=== PATIENT | female | born 2000 | race Caucasian/White ===

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

== ENCOUNTER 2019-05-30 18:39 | Emergency (ER) | payer MEDICAID ==
--- NOTE | 2019-05-30 19:12 | EDM.PDOC ---
ED HPI GENERAL MEDICAL PROBLEM - General Chief Complaint: Laceration Stated Complaint: CUT FINGER Time Seen by Provider: 05/30/19 19:10 Source of Information: Reports: Patient History Limitations: Reports: No Limitations - History of Present Illness INITIAL COMMENTS - FREE TEXT/NARRATIVE: 19 yo female , presented with injury to left finger nail , while she was shaving. No other injuries. They small superficial. No bleeding. Nailbed intact. - Related Data Allergies Allergy/AdvReac Type Severity Reaction Status Date / Time No Known Allergies Allergy Verified 05/30/19 19:09 Home Meds: Home Meds Eszopiclone [Lunesta] 2 mg PO DAILY 10/21/18 [History] Past Medical History HEENT History: Reports: Impaired Vision Gastrointestinal History: Reports: Chronic Constipation, GERD Neurological History: Reports: Migraines Psychiatric History: Reports: Anxiety, Depression, Panic Attack Hematologic History: Reports: None Dermatologic History: Reports: None - Infectious Disease History Infectious Disease History: Reports: Chicken Pox - Past Surgical History Head Surgeries/Procedures: Reports: None HEENT Surgical History: Reports: Adenoidectomy, Oral Surgery, Tonsillectomy, Other (See Below) GI Surgical History: Reports: Cholecystectomy Dermatological Surgical History: Reports: None Social & Family History - Family History Family Medical History: Noncontributory - Caffeine Use Caffeine Use: Reports: Coffee, Soda Caffeine Use Comment: 4 per day ED ROS GENERAL - Review of Systems Review Of Systems: ROS reveals no pertinent complaints other than HPI. ED EXAM, SKIN/RASH Exam: See Below Exam Limited By: No Limitations General Appearance: Alert, WD/WN, No Apparent Distress Ears: Normal External Exam, Normal Canal, Hearing Grossly Normal, Normal TMs Nose: Normal Inspection, Normal Mucosa, No Blood Throat/Mouth: Normal Inspection, Normal Lips, Normal Teeth, Normal Gums, Normal Oropharynx, Normal Voice, No Airway Compromise Head: Atraumatic, Normocephalic Neck: Normal Inspection, Supple, Non-Tender, Full Range of Motion Respiratory/Chest: No Respiratory Distress, Lungs Clear, Normal Breath Sounds, No Accessory Muscle Use, Chest Non-Tender Cardiovascular: Normal Peripheral Pulses, Regular Rate, Rhythm, No Edema, No Gallop, No JVD, No Murmur, No Rub GI/Abdominal: Normal Bowel Sounds, Soft, Non-Tender, No Organomegaly, No Distention, No Abnormal Bruit, No Mass Rectal (Female) Exam: Normal Exam, Normal Rectal Tone Back Exam: Normal Inspection, Full Range of Motion, NT Extremities: Normal Inspection, Normal Range of Motion, Non-Tender, No Pedal Edema, Normal Capillary Refill, Other (Superficial abrasion also left second finger nail. No bleeding. No foreign body. Nailbed intact.) Neurological: Alert, Oriented, CN II-XII Intact, Normal Cognition, Normal Gait, Normal Reflexes, No Motor/Sensory Deficits Psychiatric: Normal Affect, Normal Mood Lymphatic: No Adenopathy Departure - Departure Time of Disposition: 19:13 Disposition: Home, Self-Care 01 Condition: Good Clinical Impression: Laceration of finger - Discharge Information Instructions: Laceration Care, Adult Referrals: Ana Cohen CNM [Primary Care Provider] - Forms: ED Department Discharge Additional Instructions: Keep it dry and clean, daily bacitracin, close follow-up with PCP, come back if symptom worsen - Assessment/Plan Plan: Keep it dry and clean, daily bacitracin, close follow-up with PCP, come back if symptom worsen
[2019-05-30 19:17] VITALS: BP 134/74; PULSE 74
== END 2019-05-30 19:26 | disposition home or self-care (01) ==
LOC: JP.ED 18:39
DX: S61.311A Laceration without foreign body of left index finger with damage to nail, initial encounter (principal); W26.8XXA Contact with other sharp object(s), not elsewhere classified, initial encounter
CPT/HCPCS: 99282

== ENCOUNTER 2019-06-13 20:32 | Emergency (ER) | payer MEDICAID ==
[2019-06-13 20:54] VITALS: BP 123/93
--- NOTE | 2019-06-13 22:43 | EDM.PDOCBH ---
ED HPI GENERAL MEDICAL PROBLEM - General Chief Complaint: Behavioral/Psych Stated Complaint: EVAL Time Seen by Provider: 06/13/19 22:39 Source of Information: Reports: Patient History Limitations: Reports: No Limitations - History of Present Illness INITIAL COMMENTS - FREE TEXT/NARRATIVE: pt has a long history of depression since she was about 14. She took an overdose of motrin when she was 14. She got before she got out of [place]. She is presently workng at [employer] and is having trouble making ends meet. She is on zoloft 100mg daily but she is not taking it. She has not taken it for about 2 weeks. She was suicidal today and thought about swallowing some razor blades. She has her mediction and she does have insurance that will cover it. Onset: Gradual, Other (pt was very down today. ) Duration: Day(s):, Waxing/Waning Associated Symptoms: Reports: No Other Symptoms, Other ( pt has started smoking pot recently and she does use it daily. ) denies pain Pain Score (Numeric/FACES): 0 - Related Data Allergies Allergy/AdvReac Type Severity Reaction Status Date / Time No Known Allergies Allergy Verified 06/13/19 21:44 Home Meds: Home Meds Eszopiclone [Lunesta] 2 mg PO DAILY 10/21/18 [History] Past Medical History HEENT History: Reports: Impaired Vision Respiratory History: Reports: Bronchitis, Recurrent Gastrointestinal History: Reports: Chronic Constipation, GERD [employer] History: Reports: , Spontaneous Neurological History: Reports: Migraines Psychiatric History: Reports: Anxiety, Depression, Panic Attack, Suicide Attempt , Other (See Below) Other Psychiatric History: cutting Endocrine/Metabolic History: Reports: Obesity/BMI 30+, Vitamin D Deficiency Hematologic History: Reports: None Dermatologic History: Reports: Other (See Below) Other Dermatologic History: cutting - Infectious Disease History Infectious Disease History: Reports: Chicken Pox - Past Surgical History Head Surgeries/Procedures: Reports: None HEENT Surgical History: Reports: Adenoidectomy, Oral Surgery, Tonsillectomy, Other (See Below) GI Surgical History: Reports: Cholecystectomy Social & Family History - Family History Family Medical History: Noncontributory - Tobacco Use Smoking Status *Q: Never Smoker - Caffeine Use Caffeine Use: Reports: Coffee, Soda Caffeine Use Comment: 4 per day - Recreational Drug Use Recreational Drug Use: Yes Recreational Drug Type: Reports: Marijuana/Hashish ED ROS GENERAL - Review of Systems Review Of Systems: See Below Constitutional: Reports: No Symptoms HEENT: Reports: No Symptoms Respiratory: Reports: No Symptoms Cardiovascular: Reports: No Symptoms Endocrine: Reports: No Symptoms GI/Abdominal: Reports: No Symptoms : Reports: No Symptoms Musculoskeletal: Reports: No Symptoms Skin: Reports: No Symptoms Neurological: Reports: No Symptoms Psychiatric: Reports: Agitation, Anxiety, Depression, Suicidal Ideation, Other ( pt did hacve some suicidal ideation earlier. She feels safe at this point. ) Hematologic/Lymphatic: Reports: No Symptoms Immunologic: Reports: No Symptoms ED EXAM, BEHAVIORAL HEALTH - Physical Exam Exam: See Below Text/Narrative:: pt arrived with a history of depression and states she has been off of her meds for the past 10 days. She has not been seeing her counselor. She has a arms worker and she has not been using her. Exam Limited By: No Limitations General Appearance: Alert, Anxious, Other (pt is deling wit sig depression. She is upset that she is back working at [employer]. ) Ears: Normal TMs Nose: Normal Inspection Throat/Mouth: Normal Inspection Head: Atraumatic Neck: Normal Inspection Respiratory/Chest: No Respiratory Distress Cardiovascular: Regular Rate, Rhythm GI/Abdominal: Soft, Non-Tender (Female) Exam: Deferred Rectal (Female) Exam: Deferred Back Exam: Normal Inspection Extremities: Normal Inspection Neurological: Alert, Normal Cognition COURSE, BEHAVIORAL HEALTH COMP - Course Vital Signs: Last Vital Signs Temp 36.0 C 06/13/19 21:47 Pulse 79 06/13/19 21:47 Resp 16 06/13/19 21:47 BP 123/93 H 06/13/19 21:47 Pulse Ox 96 06/13/19 21:47 Orders, Labs, Meds: Active Orders 24 hr Category Date Time Status CULTURE URINE [RM] Stat Lab 06/14/19 00:15 Received Laboratory Tests 06/13/19 06/13/19 06/13/19 Range/Units 22:46 22:46 22:55 WBC (4.5-11.0) K/uL RBC (3.30-5.50) M/uL Hgb (12.0-15.0) g/dL Hct (36.0-48.0) % MCV (80-98) fL MCH (27-31) pg MCHC (32-36) % Plt Count (150-400) K/uL Neut % (Auto) (36-66) % Lymph % (Auto) (24-44) % [place] % (Auto) (2-6) % Eos % (Auto) (2-4) % Baso % (Auto) (0-1) % Sodium (140-148) mmol/L Potassium (3.6-5.2) mmol/L Chloride (100-108) mmol/L Carbon Dioxide (21-32) mmol/L Anion Gap (5.0-14.0) mmol/L BUN (7-18) mg/dL Creatinine (0.6-1.0) mg/dL Est Cr Clr Drug Dosing mL/min Estimated GFR (MDRD) (>60) Glucose (74-106) mg/dL Calcium (8.5-10.1) mg/dL Total Bilirubin (0.2-1.0) mg/dL AST (15-37) U/L ALT (12-78) U/L Alkaline Phosphatase (46-116) U/L Total Protein (6.4-8.2) g/dL Albumin (3.4-5.0) g/dL Globulin (2.3-3.5) g/dL Albumin/Globulin Ratio (1.2-2.2) TSH, Ultra Sensitive 2.621 (0.358-3.740) uIU/mL Urine Color Yellow (YELLOW) Urine Appearance Slightly cloudy A (CLEAR) Urine pH 7.0 (5.0-8.0) Ur Specific [place] 1.025 (1.008-1.030) Urine Protein Negative (NEGATIVE) mg/dL Urine Glucose (UA) Normal (NEGATIVE) mg/dL Urine Ketones Negative (NEGATIVE) mg/dL Urine Occult Blood Negative (NEGATIVE) Urine Nitrite Negative (NEGATIVE) Urine Bilirubin Negative (NEGATIVE) Urine Urobilinogen Normal (0.2-1.0) EU/dL Ur Leukocyte Esterase Trace H (NEGATIVE) Urine RBC 0-5 (0-5) Urine WBC 0-5 (0-5) Ur Epithelial Cells Few Amorphous Sediment Moderate Urine Bacteria Moderate Urine Mucus Not seen Urine Opiates Screen Negative (NEGATIVE) Ur Oxycodone Screen Negative (NEGATIVE) Urine Methadone Screen Negative (NEGATIVE) Ur Propoxyphene Screen Negative (NEGATIVE) Ur Barbiturates Screen Negative (NEGATIVE) Ur Tricyclics Screen Negative (NEGATIVE) Ur Phencyclidine Scrn Negative (NEGATIVE) Ur Amphetamine Screen Negative (NEGATIVE) U Methamphetamines Scrn Negative (NEGATIVE) Urine MDMA Screen Negative (NEGATIVE) U Benzodiazepines Scrn Negative (NEGATIVE) U Cocaine Metab Screen Negative (NEGATIVE) U Marijuana (THC) Screen Negative (NEGATIVE) 06/13/19 06/13/19 Range/Units 22:55 22:55 WBC 14.6 H (4.5-11.0) K/uL RBC 4.47 (3.30-5.50) M/uL Hgb 11.6 L (12.0-15.0) g/dL Hct 36.3 (36.0-48.0) % MCV 81 (80-98) fL MCH 26 L (27-31) pg MCHC 32 (32-36) % Plt Count 286 (150-400) K/uL Neut % (Auto) 62 (36-66) % Lymph % (Auto) 27 (24-44) % [place] % (Auto) 10 H (2-6) % Eos % (Auto) 1 L (2-4) % Baso % (Auto) 0 (0-1) % Sodium 138 L (140-148) mmol/L Potassium 3.7 (3.6-5.2) mmol/L Chloride 104 (100-108) mmol/L Carbon Dioxide 27 (21-32) mmol/L Anion Gap 10.7 (5.0-14.0) mmol/L BUN 12 (7-18) mg/dL Creatinine 0.8 (0.6-1.0) mg/dL Est Cr Clr Drug Dosing 127.41 mL/min Estimated GFR (MDRD) > 60 (>60) Glucose 95 (74-106) mg/dL Calcium 9.1 (8.5-10.1) mg/dL Total Bilirubin 0.2 D (0.2-1.0) mg/dL AST 15 (15-37) U/L ALT 32 (12-78) U/L Alkaline Phosphatase 79 (46-116) U/L Total Protein 7.2 (6.4-8.2) g/dL Albumin 3.3 L (3.4-5.0) g/dL Globulin 3.9 H (2.3-3.5) g/dL Albumin/Globulin Ratio 0.9 L (1.2-2.2) TSH, Ultra Sensitive (0.358-3.740) uIU/mL Urine Color (YELLOW) Urine Appearance (CLEAR) Urine pH (5.0-8.0) Ur Specific [place] (1.008-1.030) Urine Protein (NEGATIVE) mg/dL Urine Glucose (UA) (NEGATIVE) mg/dL Urine Ketones (NEGATIVE) mg/dL Urine Occult Blood (NEGATIVE) Urine Nitrite (NEGATIVE) Urine Bilirubin (NEGATIVE) Urine Urobilinogen (0.2-1.0) EU/dL Ur Leukocyte Esterase (NEGATIVE) Urine RBC (0-5) Urine WBC (0-5) Ur Epithelial Cells Amorphous Sediment Urine Bacteria Urine Mucus Urine Opiates Screen (NEGATIVE) Ur Oxycodone Screen (NEGATIVE) Urine Methadone Screen (NEGATIVE) Ur Propoxyphene Screen (NEGATIVE) Ur Barbiturates Screen (NEGATIVE) Ur Tricyclics Screen (NEGATIVE) Ur Phencyclidine Scrn (NEGATIVE) Ur Amphetamine Screen (NEGATIVE) U Methamphetamines Scrn (NEGATIVE) Urine MDMA Screen (NEGATIVE) U Benzodiazepines Scrn (NEGATIVE) U Cocaine Metab Screen (NEGATIVE) U Marijuana (THC) Screen (NEGATIVE) Medications Discontinued Medications Generic Name Dose Route Start Last Admin Trade Name Renae PRN Reason Stop Dose Admin Bacitracin 1 dose 06/13/19 22:43 Bacitracin Oint 1 Gm TOP 06/13/19 22:44 ONETIME ONE Sertraline HCl 100 mg 06/13/19 22:43 06/13/19 23:55 Zoloft PO 06/13/19 22:44 100 mg ONETIME ONE Administration Medical Clearance: 06/14/19 00:43 pt was seen by the [facility] team and it was there feeling that she can be treated as an outpt. . She will get an appt at [facility] and get back on her zoloft. Departure - Departure Time of Disposition: 00:45 Disposition: Home, Self-Care 01 Condition: Fair Clinical Impression: Depression - Discharge Information Referrals: Ana Cohen CNM [Primary Care Provider] - Forms: ED Department Discharge Care Plan Goals: schedule an app[facility] at [facility] to [facility] a counselor, recheck with mikael, get back on her zoloft 100mg, reconnect with her arms worker. - My Orders Last 24 Hours: My Active Orders 06/14/19 00:15 CULTURE URINE [RM] Stat - Assessment/Plan Last 24 Hours: My Active Orders 06/14/19 00:15 CULTURE URINE [RM] Stat
[2019-06-13] MEDS: Sertraline 50 MG Tab PO ONE (23:55)
[2019-06-14] MEDS: Bacitracin Oint 1 GM U/D Packet TOP ONE (01:02)
== END 2019-06-14 01:07 | disposition home or self-care (01) ==
LOC: JP.ED 20:32
DX: F32.9 Major depressive disorder, single episode, unspecified (principal); F41.9 Anxiety disorder, unspecified; Z79.899 Other long term (current) drug therapy
CPT/HCPCS: 36415; 80053; 80305; 81001; 84443; 85025; 87086; 99284; A9270

== ENCOUNTER 2019-06-24 13:35 | Emergency (ER) | payer MEDICAID ==
--- NOTE | 2019-06-24 14:15 | EDM.PDOC ---
ED HPI GENERAL MEDICAL PROBLEM - General Chief Complaint: Abdominal Pain Stated Complaint: stomach pain Time Seen by Provider: 06/24/19 14:07 Source of Information: Reports: Patient, RN Notes Reviewed History Limitations: Reports: No Limitations - History of Present Illness INITIAL COMMENTS - FREE TEXT/NARRATIVE: 19-year-old female presents emergency department today complaint of abdominal pain. She states the abdominal pain started 3 days ago and has progressively gotten worse. 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: , Spontaneous Neurological History: Reports: Migraines Psychiatric History: Reports: Anxiety, Depression, Other (See Below), Panic Attack, Suicide Attempt Other Psychiatric History: cutting Endocrine/Metabolic History: Reports: Obesity/BMI 30+, Vitamin D Deficiency Dermatologic History: Reports: Other (See Below) Other Dermatologic History: cutting - Infectious Disease History Infectious Disease History: Reports: Chicken Pox - Past Surgical History Head Surgeries/Procedures: Reports: None HEENT Surgical History: Reports: Adenoidectomy, Other (See Below), Oral Surgery , Tonsillectomy GI Surgical History: Reports: Cholecystectomy Social & Family History - Family History Family Medical History: Noncontributory - Tobacco Use Smoking Status *Q: Never Smoker - Caffeine Use Caffeine Use: Reports: Coffee, Soda Caffeine Use Comment: 4 per day ED ROS GENERAL - Review of Systems Review Of Systems: See Below Constitutional: Denies: Fever, Chills HEENT: Reports: No Symptoms Respiratory: Reports: No Symptoms Cardiovascular: Reports: No Symptoms GI/Abdominal: Reports: Abdominal Pain, Diarrhea, Flatus, Nausea, Vomiting : Reports: No Symptoms ED EXAM, GI/ABD - Physical Exam Exam: See Below Exam Limited By: No Limitations General Appearance: Alert, WD/WN, No Apparent Distress Ears: Normal External Exam, Normal Canal, Hearing Grossly Normal, Normal TMs Nose: Normal Inspection, Normal Mucosa, No Blood Throat/Mouth: Normal Inspection, Normal Lips, Normal Teeth, Normal Gums, Normal Oropharynx, Normal Voice, No Airway Compromise Head: Atraumatic, Normocephalic Neck: Normal Inspection, Supple, Non-Tender, Full Range of Motion Respiratory/Chest: No Respiratory Distress, Lungs Clear, Normal Breath Sounds, No Accessory Muscle Use, Chest Non-Tender Cardiovascular: Regular Rate, Rhythm, No Murmur GI/Abdominal Exam: Normal Bowel Sounds, Soft, Non-Tender, No Organomegaly, No Distention, No Mass. No: Distended, Guarding, Rigid, Rebound, Tender Course - Vital Signs Last Recorded V/S: Last Vital Signs Temp 97.2 F 06/24/19 14:04 Pulse 70 06/24/19 14:04 Resp 14 06/24/19 14:04 BP 137/84 06/24/19 14:04 Pulse Ox 98 06/24/19 14:04 - Orders/Labs/Meds Orders: Active Orders 24 hr Category Date Time Status Abdomen 1V Upright [CR] Urgent Exams 06/24/19 14:12 Taken Labs: Laboratory Tests 06/24/19 06/24/19 06/24/19 Range/Units 14:24 14:24 14:24 WBC 9.3 (4.5-11.0) K/uL RBC 4.77 (3.30-5.50) M/uL Hgb 12.2 (12.0-15.0) g/dL Hct 38.3 (36.0-48.0) % MCV 80 (80-98) fL MCH 26 L (27-31) pg MCHC 32 (32-36) % Plt Count 323 (150-400) K/uL Neut % (Auto) 60 (36-66) % Lymph % (Auto) 28 (24-44) % [place] % (Auto) 11 H (2-6) % Eos % (Auto) 1 L (2-4) % Baso % (Auto) 0 (0-1) % Sodium 137 L (140-148) mmol/L Potassium 4.2 (3.6-5.2) mmol/L Chloride 100 (100-108) mmol/L Carbon Dioxide 29 (21-32) mmol/L Anion Gap 12.2 (5.0-14.0) mmol/L BUN 13 (7-18) mg/dL Creatinine 0.9 (0.6-1.0) mg/dL Est Cr Clr Drug Dosing 115.06 mL/min Estimated GFR (MDRD) > 60 (>60) Glucose 84 (74-106) mg/dL Lactic Acid 0.8 (0.4-2.0) mmol/L Calcium 9.4 (8.5-10.1) mg/dL Total Bilirubin 0.2 (0.2-1.0) mg/dL AST 15 (15-37) U/L ALT 24 (12-78) U/L Alkaline Phosphatase 95 (46-116) U/L Total Protein 7.8 (6.4-8.2) g/dL Albumin 3.4 (3.4-5.0) g/dL Globulin 4.4 H (2.3-3.5) g/dL Albumin/Globulin Ratio 0.8 L (1.2-2.2) Urine Color (YELLOW) Urine Appearance (CLEAR) Urine pH (5.0-8.0) Ur Specific [place] (1.008-1.030) Urine Protein (NEGATIVE) mg/dL Urine Glucose (UA) (NEGATIVE) mg/dL Urine Ketones (NEGATIVE) mg/dL Urine Occult Blood (NEGATIVE) Urine Nitrite (NEGATIVE) Urine Bilirubin (NEGATIVE) Urine Urobilinogen (0.2-1.0) EU/dL Ur Leukocyte Esterase (NEGATIVE) Urine RBC (0-5) Urine WBC (0-5) Ur Epithelial Cells Amorphous Sediment Urine Bacteria Urine Mucus Urine HCG, Qual 06/24/19 06/24/19 Range/Units 14:38 14:38 WBC (4.5-11.0) K/uL RBC (3.30-5.50) M/uL Hgb (12.0-15.0) g/dL Hct (36.0-48.0) % MCV (80-98) fL MCH (27-31) pg MCHC (32-36) % Plt Count (150-400) K/uL Neut % (Auto) (36-66) % Lymph % (Auto) (24-44) % [place] % (Auto) (2-6) % Eos % (Auto) (2-4) % Baso % (Auto) (0-1) % Sodium (140-148) mmol/L Potassium (3.6-5.2) mmol/L Chloride (100-108) mmol/L Carbon Dioxide (21-32) mmol/L Anion Gap (5.0-14.0) mmol/L BUN (7-18) mg/dL Creatinine (0.6-1.0) mg/dL Est Cr Clr Drug Dosing mL/min Estimated GFR (MDRD) (>60) Glucose (74-106) mg/dL Lactic Acid (0.4-2.0) mmol/L Calcium (8.5-10.1) mg/dL Total Bilirubin (0.2-1.0) mg/dL AST (15-37) U/L ALT (12-78) U/L Alkaline Phosphatase (46-116) U/L Total Protein (6.4-8.2) g/dL Albumin (3.4-5.0) g/dL Globulin (2.3-3.5) g/dL Albumin/Globulin Ratio (1.2-2.2) Urine Color Yellow (YELLOW) Urine Appearance Cloudy A (CLEAR) Urine pH 6.0 (5.0-8.0) Ur Specific [place] > 1.030 (1.008-1.030) Urine Protein Negative (NEGATIVE) mg/dL Urine Glucose (UA) Normal (NEGATIVE) mg/dL Urine Ketones Negative (NEGATIVE) mg/dL Urine Occult Blood Small H (NEGATIVE) Urine Nitrite Negative (NEGATIVE) Urine Bilirubin Negative (NEGATIVE) Urine Urobilinogen Normal (0.2-1.0) EU/dL Ur Leukocyte Esterase Negative (NEGATIVE) Urine RBC 5-10 H (0-5) Urine WBC 0-5 (0-5) Ur Epithelial Cells Moderate Amorphous Sediment Moderate Urine Bacteria Moderate Urine Mucus Few Urine HCG, Qual Negative Departure - Departure Time of Disposition: 15:59 Disposition: Home, Self-Care 01 Condition: Fair Clinical Impression: Functional constipation - Discharge Information Referrals: Ana Cohen CNM [Primary Care Provider] - Forms: ED Department Discharge Additional Instructions: try MiraLAX 1 capful per day until loose stools, Please followup with your primary care provider in 3-5 days if not better, please call return to the emergency department with worsening of symptoms. - My Orders Last 24 Hours: My Active Orders 06/24/19 14:12 Abdomen 1V Upright [CR] Urgent - Assessment/Plan Last 24 Hours: My Active Orders 06/24/19 14:12 Abdomen 1V Upright [CR] Urgent Plan: Assessment Acuity = acute Site and laterality = functional constipation Etiology = slow transit time Manifestations = intermittent abdominal pain Location of injury = Home Lab values = CBC, CMP unremarkable urinalysis does reveal 5-10 RBCs consistent with a hematuria specific gravity is 1.03, abdominal film does show large amount stool in the colon official read radiologist pending Plan recommend MiraLAX 1 capful per day until loose stools follow-up primary care 3- 5 days if no improvement This note was dictated using [employer] voice recognition software please call with any questions on syntax or grammar.
[2019-06-24 14:25] VITALS: BP 137/84; PULSE 70
--- NOTE | 2019-06-24 16:10 | CRLCR ---
Indication: Right upper quadrant pain. Technique: AP supine views of the abdomen and pelvis were obtained. Comparison: March 21, 2010. Findings: The bowel gas pattern is nonobstructive. Surgical clips are identified in the right upper quadrant. Only a small amount of stool is identified within the colon. Impression: Nonobstructive bowel gas pattern Dictated by Elizabeth Berger MD @ Jun 24 2019 4:08PM Signed by Dr. Elizabeth Berger @ Jun 24 2019 4:09PM
== END 2019-06-24 16:08 | disposition home or self-care (01) ==
LOC: JP.ED 13:35
DX: K59.04 Chronic idiopathic constipation (principal); K59.01 Slow transit constipation; F41.9 Anxiety disorder, unspecified; F32.9 Major depressive disorder, single episode, unspecified; Z79.899 Other long term (current) drug therapy; Z98.890 Other specified postprocedural states; Z90.49 Acquired absence of other specified parts of digestive tract
CPT/HCPCS: 36415; 74018; 80053; 81001; 81025; 83605; 85025; 99284-25

== ENCOUNTER 2019-11-12 11:46 | Emergency (ER) | payer BC, MEDICAID ==
[2019-11-12 12:14] VITALS: BP 121/62; PULSE 73
[2019-11-12] MEDS ORDERED: Ondansetron 4 MG Tab.DIS PO ONE (12:14)
--- NOTE | 2019-11-12 12:20 | EDM.PDOC ---
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 No diarrhea or fever. Onset: Gradual Onset Date: 11/11/19 Duration: Hour(s):, Getting Worse Location: Reports: Generalized Quality: Reports: Other (no pain) Severity: Moderate Improves with: Reports: None Worsens with: Reports: Other (each passing day of her pregnacy) Context: Reports: Other (see HPI) Associated Symptoms: Reports: Nausea/Vomiting. 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: , Spontaneous Neurological History: Reports: Migraines Psychiatric History: Reports: Anxiety, Depression, Other (See Below), Panic Attack, Suicide Attempt Other Psychiatric History: cutting Endocrine/Metabolic History: Reports: Obesity/BMI 30+, Vitamin D Deficiency Hematologic History: Reports: None Dermatologic History: Reports: Other (See Below) Other Dermatologic History: cutting - Infectious Disease History Infectious Disease History: Reports: Chicken Pox - Past Surgical History Head Surgeries/Procedures: Reports: None HEENT Surgical History: Reports: Adenoidectomy, Other (See Below), Oral Surgery , Tonsillectomy Respiratory Surgical History: Reports: None GI Surgical History: Reports: Cholecystectomy Endocrine Surgical History: Reports: None Neurological Surgical History: Reports: None Social & Family History - Family History Family Medical History: Noncontributory - Tobacco Use Smoking Status *Q: Never Smoker Second Hand Smoke Exposure: No - Caffeine Use Caffeine Use: Reports: Soda Caffeine Use Comment: 4 per day - Recreational Drug Use Recreational Drug Use: No ED ROS GENERAL - Review of Systems Review Of Systems: See Below Constitutional: Reports: No Symptoms HEENT: Reports: No Symptoms Respiratory: Reports: No Symptoms Cardiovascular: Reports: No Symptoms GI/Abdominal: Reports: Nausea, Vomiting. Denies: Abdominal Pain, Black Stool, Bloody Stool, Constipation, Diarrhea, Distension, Flatus, Hematemesis, Hematochezia, Melena : Reports: No Symptoms Musculoskeletal: Reports: No Symptoms Skin: Reports: No Symptoms Neurological: Reports: No Symptoms Psychiatric: Reports: No Symptoms ED EXAM, GI/ABD - Physical Exam Exam: See Below Exam Limited By: No Limitations General Appearance: Alert, WD/WN, No Apparent Distress Eyes: Bilateral: Normal Appearance Ears: Normal External Exam, Hearing Grossly Normal Nose: Normal Inspection, No Blood Throat/Mouth: Normal Inspection, Normal Lips, Normal Oropharynx, Normal Voice, No Airway Compromise Head: Atraumatic, Normocephalic Neck: Normal Inspection Respiratory/Chest: No Respiratory Distress, Lungs Clear, Normal Breath Sounds, No Accessory Muscle Use Cardiovascular: Regular Rate, Rhythm, No Edema GI/Abdominal Exam: Normal Bowel Sounds, Soft, Non-Tender, No Distention. No: Distended, Guarding, Rigid, Rebound, Tender Neurological: Alert, Oriented, CN II-XII Intact, Normal Cognition, No Motor/ Sensory Deficits Psychiatric: Normal Affect, Normal Mood Skin Exam: Warm, Dry, Intact, Normal Color, No Rash Course - Vital Signs Text/Narrative:: Orthostats normal Last Recorded V/S: Last Vital Signs Temp 35.5 C 11/12/19 12:15 Pulse 73 11/12/19 12:15 Resp 16 11/12/19 12:15 BP 121/62 11/12/19 12:15 Pulse Ox 98 11/12/19 12:15 Orthostatic Blood Pressure [ 129/69 Standing] Orthostatic Blood Pressure [ 125/80 Sitting] Orthostatic Blood Pressure [ 132/61 Supine] - Orders/Labs/Meds Orders: Active Orders 24 hr Category Date Time Status Orthostatic Vital Signs [RC] ASDIRECTED Care 11/12/19 12:14 Active Meds: Medications Discontinued Medications Generic Name Dose Route Start Last Admin Trade Name Renae PRN Reason Stop Dose Admin Ondansetron HCl 4 mg 11/12/19 12:14 11/12/19 12:23 Zofran Odt PO 11/12/19 12:15 4 mg ONETIME ONE Administration Departure - Departure Time of Disposition: 13:04 Disposition: Home, Self-Care 01 Condition: Good Clinical Impression: Morning sickness - Discharge Information *PRESCRIPTION DRUG MONITORING PROGRAM REVIEWED*: No *COPY OF PRESCRIPTION DRUG MONITORING REPORT IN PATIENT RENITA: No Prescriptions: Ondansetron [Zofran ODT] 4 mg PO Q6H PRN #7 tab.dis PRN Reason: Nausea Referrals: Ana Cohen CNM [Primary Care Provider] - Forms: ED Department Discharge Additional Instructions: Try constance for nausea. If needed add Zofran ODT as directed for nausea control. Follow up with your provider if not doing well. Sepsis Event Note - Evaluation Sepsis Screening Result: No Definite Risk - Focused Exam Vital Signs: Vital Signs Temp Pulse Resp BP Pulse Ox 11/12/19 12:15 35.5 C 73 16 121/62 98 11/12/19 12:13 35.5 C 73 16 121/62 98 Date Exam was Performed: 11/12/19 Time Exam was Performed: 13:04 - My Orders Last 24 Hours: My Active Orders 11/12/19 12:14 Orthostatic Vital Signs [RC] ASDIRECTED - Assessment/Plan Last 24 Hours: My Active Orders 11/12/19 12:14 Orthostatic Vital Signs [RC] ASDIRECTED
== END 2019-11-12 13:13 | disposition home or self-care (01) ==
LOC: JP.ED 11:46
DX: O21.9 Vomiting of pregnancy, unspecified (principal); Z3A.09 9 weeks gestation of pregnancy
CPT/HCPCS: 99283; A9270

== ENCOUNTER 2020-06-18 06:51 | Inpatient (IN) | payer MEDICAID ==
[2020-06-18] MEDS ORDERED: Misoprostol 50 MCG (1/2 of 100 MCG) Tab VAG ONE ×3 (07:31→12:05)
[2020-06-18] MEDS ORDERED: Sodium Chloride 0.9% 10 ML Syringe FLUSH PRN (08:11)
--- NOTE | 2020-06-18 08:20 | PCM.LDHP ---
L&D History of Present Illness - General Date of Service: 06/18/20 (Planned induction) Admit Problem/Dx: Patient Status Order with Admit Dx/Problem 06/18/20 08:11 Patient Status [ADT] Routine Admission Diagnosis/Problem Admission Diagnosis/Problem Source of Information: Patient History Limitations: Reports: No Limitations - History of Present Illness Introduction:: 20 year old who is 40 4/7 weeks here for planned induction. GBS pos, ABO A neg, HIV neg, Rubella immune baby growth on us in the 95 th %. Cervix is ripe today CE 1+/50/-2, soft anterior Cat one strip with reactive NST Timing/Duration: Reports: minutes: (8), constant/continuous Improves with: Reports: None Worsens with: Reports: None - Related Data Allergies/Adverse Reactions: Allergies Allergy/AdvReac Type Severity Reaction Status Date / Time No Known Allergies Allergy Verified 11/12/19 12:08 Home Medications: Home Meds Ondansetron [Zofran ODT] 4 mg PO Q6H PRN #7 tab.dis 11/12/19 [Rx] #103/Iron Fumarate/Fa [ ] 1 tab PO DAILY 11/12/19 [History] Past Medical History HEENT History: Reports: Impaired Vision Respiratory History: Reports: Bronchitis, Recurrent Gastrointestinal History: Reports: Chronic Constipation, GERD Genitourinary History: Reports: Other (See Below) 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: , Spontaneous : 2 Para: 0 LMP (Approximate): (SAMMY 06/14/20) Neurological History: Reports: Migraines Psychiatric History: Reports: Anxiety, Depression, Other (See Below), Panic Attack, Suicide Attempt Other Psychiatric History: cutting Endocrine/Metabolic History: Reports: Obesity/BMI 30+, Vitamin D Deficiency Hematologic History: Reports: None Dermatologic History: Reports: Other (See Below) Other Dermatologic History: cutting - Infectious Disease History Infectious Disease History: Reports: Chicken Pox - Past Surgical History Head Surgeries/Procedures: Reports: None HEENT Surgical History: Reports: Adenoidectomy, Other (See Below), Oral Surgery, Tonsillectomy GI Surgical History: Reports: Cholecystectomy Female Surgical History: Reports: None Social & Family History - Family History Family Medical History: Noncontributory - Tobacco Use Smoking Status *Q: Never Smoker Second Hand Smoke Exposure: No - Caffeine Use Caffeine Use: Reports: None Caffeine Use Comment: 4 per day - Recreational Drug Use Recreational Drug Use: No H&P Review of Systems - Review of Systems: Review Of Systems: See Below General: Reports: No Symptoms HEENT: Reports: No Symptoms Pulmonary: Reports: No Symptoms Cardiovascular: Reports: No Symptoms Gastrointestinal: Reports: No Symptoms Genitourinary: Reports: No Symptoms Musculoskeletal: Reports: No Symptoms Skin: Reports: No Symptoms Psychiatric: Reports: No Symptoms Neurological: Reports: No Symptoms Hematologic/Lymphatic: Reports: No Symptoms Immunologic: Reports: No Symptoms L&D Exam - Exam Exam: See Below - Vital Signs Weight: 307 lb - OB Specific Contraction Intensity: Mild Movement: Active Heart Tones: Present Heart Tones per Min: 130 Heart Rate (FHR) Variability: Moderate (6-25 bmp) Presentation: Vertex Estimated Weight: 8-9 - Coronel Score Coronel Score Cervix Position: Anterior Coronel Score Consistency: Soft Coronel Score Effacement: 51-70% Coronel Score Dilation: 1-2 cm Coronel Score 's Station: -2 Coronel Score Total: 8 - Exam General: Alert, Oriented HEENT: PERRLA Neck: Supple Lungs: Clear to Auscultation, Normal Respiratory Effort Cardiovascular: Regular Rhythm GI/Abdominal Exam: Normal Bowel Sounds, Soft Genitourinary: Normal external exam, Enlarged uterus, Vaginal discharge Back Exam: Normal Inspection Extremities: No Pedal Edema, Normal Capillary Refill Skin: Warm, Dry Neurological: Cranial Nerves Intact Psychiatric: Alert, Normal Affect, Normal Mood - Patient Data Lab Results Last 24 hrs: Laboratory Results - last 24 hr 06/18/20 06/18/20 06/18/20 Range/Units 07:02 07:02 07:40 WBC 12.1 H (4.5-11.0) K/uL RBC 4.21 (3.30-5.50) M/uL Hgb 11.6 L (12.0-15.0) g/dL Hct 35.2 L (36.0-48.0) % MCV 84 (80-98) fL MCH 28 (27-31) pg MCHC 33 (32-36) % Plt Count 267 (150-400) K/uL Neut % (Auto) 71 H (36-66) % Lymph % (Auto) 19 L (24-44) % [place] % (Auto) 10 H (2-6) % Eos % (Auto) 1 L (2-4) % Baso % (Auto) 0 (0-1) % Urine Color Yellow (YELLOW) Urine Appearance Cloudy A (CLEAR) Urine pH 7.0 (5.0-8.0) Ur Specific [place] 1.020 (1.008-1.030) Urine Protein Negative (NEGATIVE) mg/dL Urine Glucose (UA) Negative (NEGATIVE) mg/dL Urine Ketones Negative (NEGATIVE) mg/dL Urine Occult Blood Large H (NEGATIVE) Urine Nitrite Negative (NEGATIVE) Urine Bilirubin Negative (NEGATIVE) Urine Urobilinogen 0.2 (0.2-1.0) EU/dL Ur Leukocyte Esterase Negative (NEGATIVE) Urine RBC 30-40 H (0-5) Urine WBC 0-5 (0-5) Ur Epithelial Cells Moderate Amorphous Sediment Not seen Urine Bacteria Few Urine Mucus Few Urine Opiates Screen Negative (NEGATIVE) Ur Oxycodone Screen Negative (NEGATIVE) Urine Methadone Screen Negative (NEGATIVE) Ur Propoxyphene Screen Negative (NEGATIVE) Ur Barbiturates Screen Negative (NEGATIVE) Ur Tricyclics Screen Negative (NEGATIVE) Ur Phencyclidine Scrn Negative (NEGATIVE) Ur Amphetamine Screen Negative (NEGATIVE) U Methamphetamines Scrn Negative (NEGATIVE) Urine MDMA Screen Negative (NEGATIVE) U Benzodiazepines Scrn Negative (NEGATIVE) U Cocaine Metab Screen Negative (NEGATIVE) U Marijuana (THC) Screen Negative (NEGATIVE) Result Diagrams: 06/18/20 07:40 - Problem List (1) Elective induction of labor planned SNOMED Code(s): 054820190 ICD Code: [id number] - Status: Acute Current Visit: Yes (2) SNOMED Code(s): 88289339 ICD Code: Z34.90 - ENCNTR FOR SUPRVSN OF NORMAL , UNSP, UNSP TRIMESTER Status: Acute Current Visit: No Qualifiers: Weeks of gestation: 40 weeks Qualified Code(s): Z3A.40 - 40 weeks gestation of Problem List Initiated/Reviewed/Updated: Yes Orders Last 24hrs: Active Orders 24 hr Category Date Time Status Patient Status [ADT] Routine ADT 06/18/20 08:11 Ordered Antiembolic Devices [RC] .Routine Care 06/18/20 08:13 Ordered Communication Order [RC] ASDIRECTED Care 06/18/20 08:11 Ordered Dietary Supplements [RC] BIDMEALS Care 06/18/20 08:14 Ordered Heart Tones [RC] PER UNIT ROUTINE Care 06/18/20 08:11 Ordered Non Stress Test [RC] Click to Edit Care 06/18/20 08:11 Ordered May Shower [RC] ASDIRECTED Care 06/18/20 08:11 Ordered Notify Provider Vital Signs [RC] PRN Care 06/18/20 08:11 Ordered Notify Provider [RC] PRN Care 06/18/20 08:11 Ordered Up ad My [RC] ASDIRECTED Care 06/18/20 08:11 Ordered VTE/DVT Education [RC] Click to Edit Care 06/18/20 08:13 Ordered Vital Signs [RC] PER UNIT ROUTINE Care 06/18/20 08:11 Ordered Oxytocin/Normal Saline [Pitocin in NS 20 Units/1,000 ML Med 06/18/20 08:14 Ordered ] 20 unit in 1,000 ml IV ONETIME Penicillin G Potassium [Pfizerpen] 2.5 millunits Med 06/18/20 08:15 Ordered Sodium Chloride 0.9% [Normal Saline] 50 ml IV Q4H Penicillin G Potassium [Pfizerpen] 5 millunits Med 06/18/20 08:14 Ordered Sodium Chloride 0.9% [Normal Saline] 100 ml IV ONETIME Sodium Chloride 0.9% [Saline Flush] Med 06/18/20 08:11 Ordered 10 ml FLUSH ASDIRECTED PRN fentaNYL [Sublimaze] Med 06/18/20 08:11 Ordered 100 mcg IVPUSH Q1H PRN DVT/VTE Prophylaxis Reflex [OM.PC] Routine Oth 06/18/20 08:11 Ordered Saline Lock Insert [OM.PC] Routine Oth 06/18/20 08:11 Ordered Resuscitation Status Routine Resus Stat 06/18/20 08:11 Ordered Medication Orders Fentanyl (Sublimaze) 100 mcg IVPUSH Q1H PRN PRN Reason: Pain (moderate 4-6) Oxytocin/Sodium Chloride (Pitocin In Ns 20 Units/1,000 Ml) 20 unit in 1,000 mls @ 999 mls/hr IV ONETIME ONE; Protocol Stop: 06/18/20 09:14 Penicillin G Potassium 5 (millunits/ Sodium Chloride) 100 mls @ 200 mls/hr IV ONETIME ONE Stop: 06/18/20 08:43 Sodium Chloride (Saline Flush) 10 ml FLUSH ASDIRECTED PRN PRN Reason: Keep Vein Open Assessment/Plan Comment:: 20 year old 40 4/7 weeks coronel score 8, reactive nst mild contractions GBS positive, will treat planned induction 50 mcg placed at 0800 monitor for contractions and active labor will reassess at noon. pain management per patient request.
[2020-06-18] MEDS ORDERED: Penicillin G Potassium 5 MILLUNITS in Sodium Chloride 0.9% 100 ML IV ONE (08:30)
--- NOTE | 2020-06-18 12:33 | PCM.PNLD ---
Labor Progress Note - VS & Meds Vital Signs: Last Vital Signs Temp 96.0 F L 06/18/20 12:00 Pulse 65 06/18/20 12:00 Resp 16 06/18/20 12:00 BP 121/66 06/18/20 12:00 Pulse Ox 99 06/18/20 12:00 Active Medications: Current Medications Fentanyl (Sublimaze) 100 mcg IVPUSH Q1H PRN PRN Reason: Pain (moderate 4-6) Penicillin G Potassium 2.5 (millunits/ Sodium Chloride) 50 mls @ 100 mls/hr IV Q4H BREEZY Sodium Chloride (Saline Flush) 10 ml FLUSH ASDIRECTED PRN PRN Reason: Keep Vein Open Discontinued Medications Oxytocin/Sodium Chloride (Pitocin In Ns 20 Units/1,000 Ml) 20 unit in 1,000 mls @ 999 mls/hr IV ONETIME ONE; Protocol Stop: 06/18/20 09:14 Penicillin G Potassium 5 (millunits/ Sodium Chloride) 100 mls @ 200 mls/hr IV ONETIME ONE Stop: 06/18/20 08:59 Last Admin: 06/18/20 08:36 Dose: 200 mls/hr Documented by: Misoprostol (Cytotec) 50 mcg VAG ONETIME ONE Stop: 06/18/20 07:32 Last Admin: 06/18/20 07:59 Dose: 50 mcg Documented by: Misoprostol (Cytotec) 50 mcg VAG ONETIME ONE Stop: 06/18/20 12:01 Last Admin: 06/18/20 12:24 Dose: 50 mcg Documented by: Misoprostol (Cytotec) 25 mcg VAG ONETIME ONE Stop: 06/18/20 12:06 - Uterine Contractions Uterine Monitoring Mode: External Bledsoe Contraction Frequency (min): 2.5-4.5 Contraction Duration (sec): 30-70 Contraction Intensity: Mild Uterine Resting Tone: Soft - Monitoring Monitor Mode: Doppler/Auscultation Heart Rate (FHR) Baseline: 140 Heart Rate (FHR) Variability: Moderate (6-25 bmp) Accelerations: Present, 15x15 Decelerations: None Strip Review: Category I - Vaginal Exam Dilation (cm): 3 Effacement (Percent): 75 Station: -1 Cervical Position: Anterior Sterile Vaginal Exam Performed By: Maria G Shelby Vaginal Exam Comment: nice progress since this morning - Labor Progress (Free Text) Labor Progress: in early labor cervical change since morning / anterior and soft cat one strip contractions every 2-3 minutes and getting stronger Plan monitor for active labor discussed pain management options plan for vaginal delivery will reassess at 3-4 pm and possible AROM
[2020-06-18] MEDS: Penicillin G Potassium 2.5 MILLUNITS in Sodium Chloride 0.9% 50 ML IV SCH ×3 (12:43→21:38)
[2020-06-18] MEDS: fentaNYL 100 MCG/2 ML SDV IVPUSH PRN ×2 (13:27→15:27)
[2020-06-18] MEDS ORDERED: Lactated Ringers 1,000 ML IV ONE ×2 (13:30→16:43)
[2020-06-18] MEDS: Lactated Ringers 1,000 ML IV SCH ×2 (14:35→23:39)
--- NOTE | 2020-06-18 15:28 | PCM.PNLD ---
Labor Progress Note - VS & Meds Vital Signs: Last Vital Signs Temp 96.8 F L 06/18/20 14:00 Pulse 65 06/18/20 14:00 Resp 16 06/18/20 14:00 BP 115/63 06/18/20 14:00 Pulse Ox 97 06/18/20 14:00 Active Medications: Current Medications Fentanyl (Sublimaze) 100 mcg IVPUSH Q1H PRN PRN Reason: Pain (moderate 4-6) Last Admin: 06/18/20 13:27 Dose: 100 mcg Documented by: Penicillin G Potassium 2.5 (millunits/ Sodium Chloride) 50 mls @ 100 mls/hr IV Q4H BREEZY Last Admin: 06/18/20 12:43 Dose: 100 mls/hr Documented by: Lactated Ringer's (Ringers, Lactated) 1,000 mls @ 75 mls/hr IV ASDIRECTED BREEZY Last Admin: 06/18/20 14:35 Dose: 75 mls/hr Documented by: Sodium Chloride (Saline Flush) 10 ml FLUSH ASDIRECTED PRN PRN Reason: Keep Vein Open Discontinued Medications Oxytocin/Sodium Chloride (Pitocin In Ns 20 Units/1,000 Ml) 20 unit in 1,000 mls @ 999 mls/hr IV ONETIME ONE; Protocol Stop: 06/18/20 09:14 Penicillin G Potassium 5 (millunits/ Sodium Chloride) 100 mls @ 200 mls/hr IV ONETIME ONE Stop: 06/18/20 08:59 Last Admin: 06/18/20 08:36 Dose: 200 mls/hr Documented by: Lactated Ringer's (Ringers, Lactated) 1,000 mls @ 999 mls/hr IV BOLUS ONE Stop: 06/18/20 14:30 Last Admin: 06/18/20 13:36 Dose: 999 mls/hr Documented by: Misoprostol (Cytotec) 50 mcg VAG ONETIME ONE Stop: 06/18/20 07:32 Last Admin: 06/18/20 07:59 Dose: 50 mcg Documented by: Misoprostol (Cytotec) 50 mcg VAG ONETIME ONE Stop: 06/18/20 12:01 Last Admin: 06/18/20 12:24 Dose: 50 mcg Documented by: Misoprostol (Cytotec) 25 mcg VAG ONETIME ONE Stop: 06/18/20 12:06 Last Admin: 06/18/20 12:41 Dose: Not Given Documented by: - Uterine Contractions Uterine Monitoring Mode: External [place] Contraction Frequency (min): 1.5-2 Contraction Duration (sec): 40-70 Contraction Intensity: Strong Uterine Resting Tone: Soft - Monitoring Monitor Mode: Doppler/Auscultation Heart Rate (FHR) Baseline: 140 Heart Rate (FHR) Variability: Moderate (6-25 bmp) Accelerations: Present, 15x15 Decelerations: None Strip Review: Category I - Vaginal Exam Dilation (cm): 7 Effacement (Percent): 80-90 Station: 0 Cervical Position: Anterior Sterile Vaginal Exam Performed By: Maria G Shelby Vaginal Exam Comment: SROM clear - Labor Progress (Free Text) Labor Progress: wow, amazing labor plan for vaginal delivery
[2020-06-18] MEDS ORDERED: ePHEDrine 50 MG/ML SDV IVPUSH PRN (16:42)
--- NOTE | 2020-06-18 16:47 | PCM.PNLD ---
Labor Progress Note - VS & Meds Vital Signs: Last Vital Signs Temp 96.8 F L 06/18/20 14:00 Pulse 65 06/18/20 14:00 Resp 16 06/18/20 14:00 BP 115/63 06/18/20 14:00 Pulse Ox 97 06/18/20 14:00 Active Medications: Current Medications Ephedrine Sulfate (Ephedrine Sulfate) 10 mg IVPUSH ASDIRECTED PRN PRN Reason: epidural Fentanyl (Sublimaze) 100 mcg IVPUSH Q1H PRN PRN Reason: Pain (moderate 4-6) Last Admin: 06/18/20 15:27 Dose: 50 mcg Documented by: Penicillin G Potassium 2.5 (millunits/ Sodium Chloride) 50 mls @ 100 mls/hr IV Q4H BREEZY Last Admin: 06/18/20 12:43 Dose: 100 mls/hr Documented by: Lactated Ringer's (Ringers, Lactated) 1,000 mls @ 75 mls/hr IV ASDIRECTED BREEZY Last Admin: 06/18/20 14:35 Dose: 75 mls/hr Documented by: Oxytocin/Sodium Chloride (Pitocin In Ns 20 Units/1,000 Ml) 20 unit in 1,000 mls @ 999 mls/hr IV ASDIRECTED BREEZY; Protocol Sodium Chloride (Saline Flush) 10 ml FLUSH ASDIRECTED PRN PRN Reason: Keep Vein Open Discontinued Medications Penicillin G Potassium 5 (millunits/ Sodium Chloride) 100 mls @ 200 mls/hr IV ONETIME ONE Stop: 06/18/20 08:59 Last Admin: 06/18/20 08:36 Dose: 200 mls/hr Documented by: Lactated Ringer's (Ringers, Lactated) 1,000 mls @ 999 mls/hr IV BOLUS ONE Stop: 06/18/20 14:30 Last Admin: 06/18/20 13:36 Dose: 999 mls/hr Documented by: Misoprostol (Cytotec) 50 mcg VAG ONETIME ONE Stop: 06/18/20 07:32 Last Admin: 06/18/20 07:59 Dose: 50 mcg Documented by: Misoprostol (Cytotec) 50 mcg VAG ONETIME ONE Stop: 06/18/20 12:01 Last Admin: 06/18/20 12:24 Dose: 50 mcg Documented by: Misoprostol (Cytotec) 25 mcg VAG ONETIME ONE Stop: 06/18/20 12:06 Last Admin: 06/18/20 12:41 Dose: Not Given Documented by: - Uterine Contractions Uterine Monitoring Mode: External [place] Contraction Frequency (min): 1.5-3 Contraction Duration (sec): 40-90 Contraction Intensity: Strong Uterine Resting Tone: Soft - Monitoring Monitor Mode: Doppler/Auscultation Heart Rate (FHR) Baseline: 140 Heart Rate (FHR) Variability: Moderate (6-25 bmp) Accelerations: Present, 15x15 Decelerations: None Strip Review: Category I - Vaginal Exam Dilation (cm): 9 Effacement (Percent): 90 Station: 0 Cervical Position: Anterior Sterile Vaginal Exam Performed By: Maria G Shelby Vaginal Exam Comment: baby remains at zero station, many position changes. - Labor Progress (Free Text) Labor Progress: epidural for pain management and relaxing of pelvis. ancipitate a vaginal delivery with rest earlier today had discussed c section if we have arrested descent
[2020-06-18] MEDS ORDERED: Ropivacaine 100 ML ONE (17:23)
--- NOTE | 2020-06-18 18:28 | ANES ---
DATE OF SERVICE: 06/18/2020 INDICATIONS: Gillian is a 20-year-old female patient in our Obstetrics Unit under the care of Maria G Shelby CNM. She is in a prolonged stage II labor, I was requested to consult her by Maria G Shelby for labor epidural upon arrival and reviewing patient's history as well as lab work, found no contraindication to epidural placement. I discussed with her risks and benefits of procedure. Consent was received. TECHNIQUE: I had her seated at the edge of the bed. Betadine prep x3 to lumbar region. Sterile drape was placed, 1% lidocaine skin wheal as well as deep at the L3-L4 region. A 17- gauge Tuohy was placed to loss of resistance. Negative CSF, negative heme, negative paresthesia. I inserted the epidural catheter to 15 cm. The needle was removed. A test dose was given through the catheter of 3 mL of 1.5% lidocaine and 1:200,000 epinephrine. Catheter was then secured in place. I placed the patient in the supine position. I dosed her with 12 mL of 0.2% ropivacaine and began an infusion of that same 0.2% ropivacaine. She tolerated the procedure quite well. Please refer to nursing notes for vital signs and neuro status, which were unchanged and within normal limits. I discussed with her that it may not get her completely pain free, but within the next 20 to 30 minutes, she would have definite relief. She was very thankful. Again, she tolerated the procedure quite well. Harley Palomares CRNA /[id number]
--- NOTE | 2020-06-18 20:25 | PCM.DEL ---
L & D Note - General Info Date of Service: 06/18/20 (childbirth) Mother's Due Date: 07/15/20 - Delivery Note Labor: Spontaneous Cervical Ripening Method: Misoprostil Delivery Outcome: Livebirth Delivery Method: Spontaneous Vaginal Delivery-Single Infant Delivery Mode: Vacuum Extraction Presentation: Vertex Nuchal Cord: Present (clamped and cut) Anesthesia Type: Epidural Amniotic Fluid Description: Clear Episiotomy Type: None Laceration: 3rd Degree, Perineal Suture type: Vicryl Suture size: 3-0 Placenta: Intact, Spontaneous Cord: 3 Vessels Estimated Blood Loss: 200 Resuscitation Needed: No : Stimulated, Warmed, [place] Used Provider: Maria G Shelby Score 1 min: 9 (color) Score 5 min: 9 (color) Post Delivery Events: Other (see below) (fat dystocia) Second Stage Interventions: Reports: Second Nurse Reviewed Heart Tones, Laboring Down, Pushing, Left Side, Pushing, McRobert's Position, Pushing, Pulls Own Legs Back, Pushing, Squat Bar Pulling on Sheet Delivery Comments (Free Text/Narrative):: This 20 year old who is 40 4/7 weeks delivered a viable female via with vacuum assist at 1923 in XOCHITL position with a tight nuchal cord the was clamped and cut. [place] was placed on mother's abdomen and dried and stimulated she cried spontaneously. Three vessel cord and Apgars of 9 & 9 all for color. Mother progressed well from 1-7 cm. Very little descent of fetus. An epidural was inserted when she was 9 CM and she relaxed and slept. She progressed to 10 cm and the fetus was at +1 station when we started pushing. after an 1.25 hours of pushing, we discussed using the vacuum to assist as the fetus was sitting at +3 for 30 plus minutes. The baby was delivered quickly with one pull with the vacuum. The 3rd degree tear was from the posterior shoulder as the baby was a tight fit due to mother's body habitus. The placenta was expressed spontaneously intact. The laceration was repaired with 3-0 vicryl and hemostasis was achieved. EBL 200cc inspection of cervix, vagina, rectum no lacerations. Active management of the third stage and skin to skin were employed. Mother and baby to post in stable condition weight 8-6 First stage 7143-6497 Second stage 6559-4625 Third stage [id number] Induction Criteria - Coronel Score Coronel Score Dilation: 1-2 cm Coronel Score Effacement: 40-50% Coronel Score Infant's Station: -1 ,0 Coronel Score Consistency: Soft Coronel Score Cervix Position: Anterior Coronel Score Total: 8 Coronel Score Presenting Part: Reports: Cephalic - Induction Gestational Age >/= 39 wks: Yes Estimated Pelvis: Reports: Adequate Reassuring Monitoring Strip: Yes Absence of Tachy Systole: Yes Vacuum Extractor Progress Note - Alternative Labor Strategies Considered Alternative Labor Strategies Considered:: Reports: Yes Strategies Considered:: Reports: Contraction Intensity Adequate, Position Changes Used to Facilitate Rotation & Descent, Empty Bladder, Rest Indications Considered:: Reports: Yes Indications:: Reports: Prolonged 2nd Stage, Shortening of 2nd Stage for Maternal Benefit Time Out:: Reports: Yes - Patient Prepared Patient Prepared:: Reports: Yes Informed Consent:: Reports: Verbal Risks: Reports: Yes Risks Include:: Reports: Laceration, Shoulder Dystocia, Maternal Injury Anesthesia/Analgesia Adequate:: Reports: Yes - Probability of Success High Probability of Success:: Reports: Yes Weight Estimated:: Reports: AGA Patient Diabetic:: Reports: No Pelvis Adequate:: Reports: Yes Asynclitic:: Reports: No - Application Time Maximum Application Time & Number of Pop-Offs Predetermined:: Reports: Yes Maximum Pressure Maintained in [place] (cm Hg):: 15 (seconds) Total Application Time (min): *max=20min: 15 (seconds) Number of Times Cup Disengaged:: 0 Type of Vacuum Used:: Reports: Cup: Mushroom type, Cup: Soft Vacuum Extraction: Successful - Exit Strategy Exit strategy available:: Reports: Yes and resuscitation teams readily available:: Reports: Yes - General Info Date of Service: 06/18/20 Admission Dx/Problem (Free Text): Patient Status Order with Admit Dx/Problem 06/18/20 08:11 Patient Status [ADT] Routine Admission Diagnosis/Problem Admission Diagnosis/Problem Functional Status: Reports: Pain Controlled - Review of Systems General: Reports: No Symptoms HEENT: Reports: No Symptoms Pulmonary: Reports: No Symptoms Cardiovascular: Reports: No Symptoms Gastrointestinal: Reports: No Symptoms Genitourinary: Reports: No Symptoms Musculoskeletal: Reports: No Symptoms Skin: Reports: No Symptoms Neurological: Reports: No Symptoms Psychiatric: Reports: No Symptoms - Patient Data Vitals - Most Recent: Last Vital Signs Temp 98.6 F 06/18/20 18:25 Pulse 85 06/18/20 18:25 Resp 18 06/18/20 17:20 BP 122/85 06/18/20 18:25 Pulse Ox 98 06/18/20 17:05 Weight - Most Recent: 307 lb 0.005 oz I&O - Last 24 Hours: Intake & Output 06/18/20 06/18/20 06/18/20 06:59 14:59 22:59 Intake Total 1000 Balance 1000 Lab Results Last 24 Hours: Laboratory Results - last 24 hr 06/18/20 06/18/20 06/18/20 Range/Units 07:02 07:02 07:40 WBC 12.1 H (4.5-11.0) K/uL RBC 4.21 (3.30-5.50) M/uL Hgb 11.6 L (12.0-15.0) g/dL Hct 35.2 L (36.0-48.0) % MCV 84 (80-98) fL MCH 28 (27-31) pg MCHC 33 (32-36) % Plt Count 267 (150-400) K/uL Neut % (Auto) 71 H (36-66) % Lymph % (Auto) 19 L (24-44) % [place] % (Auto) 10 H (2-6) % Eos % (Auto) 1 L (2-4) % Baso % (Auto) 0 (0-1) % Urine Color Yellow (YELLOW) Urine Appearance Cloudy A (CLEAR) Urine pH 7.0 (5.0-8.0) Ur Specific [place] 1.020 (1.008-1.030) Urine Protein Negative (NEGATIVE) mg/dL Urine Glucose (UA) Negative (NEGATIVE) mg/dL Urine Ketones Negative (NEGATIVE) mg/dL Urine Occult Blood Large H (NEGATIVE) Urine Nitrite Negative (NEGATIVE) Urine Bilirubin Negative (NEGATIVE) Urine Urobilinogen 0.2 (0.2-1.0) EU/dL Ur Leukocyte Esterase Negative (NEGATIVE) Urine RBC 30-40 H (0-5) Urine WBC 0-5 (0-5) Ur Epithelial Cells Moderate Amorphous Sediment Not seen Urine Bacteria Few Urine Mucus Few Urine Opiates Screen Negative (NEGATIVE) Ur Oxycodone Screen Negative (NEGATIVE) Urine Methadone Screen Negative (NEGATIVE) Ur Propoxyphene Screen Negative (NEGATIVE) Ur Barbiturates Screen Negative (NEGATIVE) Ur Tricyclics Screen Negative (NEGATIVE) Ur Phencyclidine Scrn Negative (NEGATIVE) Ur Amphetamine Screen Negative (NEGATIVE) U Methamphetamines Scrn Negative (NEGATIVE) Urine MDMA Screen Negative (NEGATIVE) U Benzodiazepines Scrn Negative (NEGATIVE) U Cocaine Metab Screen Negative (NEGATIVE) U Marijuana (THC) Screen Negative (NEGATIVE) Med Orders - Current: Current Medications Ephedrine Sulfate (Ephedrine Sulfate) 10 mg IVPUSH ASDIRECTED PRN PRN Reason: epidural Fentanyl (Sublimaze) 100 mcg IVPUSH Q1H PRN PRN Reason: Pain (moderate 4-6) Last Admin: 06/18/20 15:27 Dose: 50 mcg Documented by: Penicillin G Potassium 2.5 (millunits/ Sodium Chloride) 50 mls @ 100 mls/hr IV Q4H BREEZY Last Admin: 06/18/20 16:51 Dose: 100 mls/hr Documented by: Lactated Ringer's (Ringers, Lactated) 1,000 mls @ 75 mls/hr IV ASDIRECTED BREEZY Last Admin: 06/18/20 14:35 Dose: 75 mls/hr Documented by: Oxytocin/Sodium Chloride (Pitocin In Ns 20 Units/1,000 Ml) 20 unit in 1,000 mls @ 999 mls/hr IV ASDIRECTED BREEZY; Protocol Last Admin: 06/18/20 18:21 Dose: 3 mls/hr, 3 mls/hr Documented by: Sodium Chloride (Saline Flush) 10 ml FLUSH ASDIRECTED PRN PRN Reason: Keep Vein Open Discontinued Medications Penicillin G Potassium 5 (millunits/ Sodium Chloride) 100 mls @ 200 mls/hr IV ONETIME ONE Stop: 06/18/20 08:59 Last Admin: 06/18/20 08:36 Dose: 200 mls/hr Documented by: Lactated Ringer's (Ringers, Lactated) 1,000 mls @ 999 mls/hr IV BOLUS ONE Stop: 06/18/20 14:30 Last Admin: 06/18/20 13:36 Dose: 999 mls/hr Documented by: Lactated Ringer's (Ringers, Lactated) 1,000 mls @ 999 mls/hr IV .BOLUS ONE Stop: 06/18/20 17:43 Ropivacaine (Naropin 0.2%) Confirm Administered Dose 100 mls @ as directed .ROUTE .STK-MED ONE Stop: 06/18/20 17:24 Misoprostol (Cytotec) 50 mcg VAG ONETIME ONE Stop: 06/18/20 07:32 Last Admin: 06/18/20 07:59 Dose: 50 mcg Documented by: Misoprostol (Cytotec) 50 mcg VAG ONETIME ONE Stop: 06/18/20 12:01 Last Admin: 06/18/20 12:24 Dose: 50 mcg Documented by: Misoprostol (Cytotec) 25 mcg VAG ONETIME ONE Stop: 06/18/20 12:06 Last Admin: 06/18/20 12:41 Dose: Not Given Documented by: - Exam General: Alert, Oriented HEENT: Pupils Equal Neck: Supple Lungs: Clear to Auscultation, Normal Respiratory Effort Cardiovascular: Regular Rate, Regular Rhythm GI/Abdominal Exam: Soft, Pelvis Stable (Female) Exam: Normal External Exam, Cervical Dilatation, Enlarged Uterus, Vaginal Bleeding, Other (perineal tear, reapired) Back Exam: Normal Inspection Extremities: Non-Tender, No Pedal Edema, Normal Capillary Refill - Problem List & Annotations (1) Elective induction of labor planned SNOMED Code(s): 056072728 Code(s): LXK9490 - Status: Acute Current Visit: Yes (2) SNOMED Code(s): 36846393 Code(s): Z34.90 - ENCNTR FOR SUPRVSN OF NORMAL , UNSP, UNSP TRIMESTER Status: Acute Current Visit: No Qualifiers: Weeks of gestation: 40 weeks Qualified Code(s): Z3A.40 - 40 weeks gestation of (3) Third degree perineal laceration during delivery SNOMED Code(s): 57573152, 753495914 Code(s): O70.20 - THIRD DEGREE PERINEAL LACERATION DURING DELIVERY, UNSP Status: Acute Current Visit: Yes (4) Labor/delivery complication, delivered SNOMED Code(s): 013533672, 821008969 Code(s): O75.9 - COMPLICATION OF LABOR AND DELIVERY, UNSPECIFIED Status: Acute Current Visit: Yes (5) Active labor at term SNOMED Code(s): 52115361 Code(s): SWO1234 - Status: Acute Current Visit: Yes - Problem List Review Problem List Initiated/Reviewed/Updated: Yes - My Orders Last 24 Hours: My Active Orders 06/18/20 08:11 Patient Status [ADT] Routine Communication Order [RC] ASDIRECTED Non Stress Test [RC] Click to Edit May Shower [RC] ASDIRECTED Notify Provider Vital Signs [RC] PRN Notify Provider [RC] PRN Up ad My [RC] ASDIRECTED Vital Signs [RC] PER UNIT ROUTINE Sodium Chloride 0.9% [Saline Flush] 10 ml FLUSH ASDIRECTED PRN fentaNYL [Sublimaze] 100 mcg IVPUSH Q1H PRN DVT/VTE Prophylaxis Reflex [OM.PC] Routine Saline Lock Insert [OM.PC] Routine Resuscitation Status Routine 06/18/20 08:13 Antiembolic Devices [RC] .Routine VTE/DVT Education [RC] Click to Edit 06/18/20 08:14 Dietary Supplements [RC] BIDMEALS 06/18/20 12:30 Penicillin G Potassium [Pfizerpen] 2.5 millunits Sodium Chloride 0.9% [Normal Saline] 50 ml IV Q4H 06/18/20 14:30 Lactated Ringers [Ringers, Lactated] 1,000 ml IV ASDIRECTED 06/18/20 15:30 Oxytocin/Normal Saline [Pitocin in NS 20 Units/1,000 ML] 20 unit in 1,000 ml IV ASDIRECTED 06/18/20 16:42 ePHEDrine [ePHEDrine sulfate] 10 mg IVPUSH ASDIRECTED PRN 06/18/20 16:44 Communication Order [RC] ASDIRECTED Local Anesthetic Infusion Pump [RC] ASDIRECTED PCEA Epidural [RC] ASDIRECTED PCEA Epidural [RC] ASDIRECTED Urinary Catheter Assessment [RC] ASDIRECTED Epidural Catheter Management [OM.PC] Urgent 06/18/20 16:45 Insert Urinary Catheter [OM.PC] ASDIRECTED - Assessment Assessment:: 20 year G2 now P1 40 4/7 weeks vacuum assisted vaginal delivery with third degree tear with repair. female - Plan Plan:: 20 year old 40 4/7 weeks coronel score 8, reactive nst mild contractions GBS positive, will treat planned induction 50 mcg placed at 0800 monitor for contractions and active labor will reassess at noon. pain management per patient request. 06/18/20 routine cares needs education and support of GBS positive, treated 48-72 hour stay [facility] in am perineal care, ice times 24 hours
[2020-06-18] MEDS ORDERED: Witch Hazel Medicated Pads 100/Jar TOP ONE ×2 (20:31→23:45)
[2020-06-18] MEDS ORDERED: Hydrocortisone 2.5% Crm 30 GM Tube TOP PRN (20:31)
[2020-06-18] MEDS ORDERED: Lanolin 100% Cream 40 GM Tube TOP ONE (20:31)
[2020-06-18] MEDS ORDERED: Benzocaine 20% Top Spray 56 GM Bottle TOP ONE (20:31)
[2020-06-18] MEDS ORDERED: Acetaminophen 325 MG Tab, 50 Tab Bulk Bottle PO PRN (20:33)
[2020-06-18] MEDS ORDERED: Ibuprofen 200 MG Tab, 24 Tab Bulk Bottle PO PRN (20:33)
[2020-06-18] MEDS ORDERED: Benzocaine 20% Top Spray 56 GM Bottle TOP PRN (23:50)
[2020-06-18] MEDS ORDERED: Lanolin 100% Cream 40 GM Tube TOP PRN (23:50)
[2020-06-18] MEDS ORDERED: Witch Hazel Medicated Pads 100/Jar TOP PRN (23:51)
[2020-06-19] MEDS: Penicillin G Potassium 2.5 MILLUNITS in Sodium Chloride 0.9% 50 ML IV SCH ×3 (00:41→10:21)
--- NOTE | 2020-06-19 08:00 | PCM.PNPP ---
- General Info Date of Service: 06/19/20 (PPD 1) Admission Dx/Problem (Free Text): Patient Status Order with Admit Dx/Problem 06/18/20 08:11 Patient Status [ADT] Routine Admission Diagnosis/Problem Admission Diagnosis/Problem Functional Status: Reports: Pain Controlled, Ambulating, Urinating - Review of Systems General: Reports: No Symptoms HEENT: Reports: No Symptoms Pulmonary: Reports: No Symptoms Cardiovascular: Reports: No Symptoms Gastrointestinal: Reports: No Symptoms Genitourinary: Reports: No Symptoms Musculoskeletal: Reports: No Symptoms Skin: Reports: No Symptoms Neurological: Reports: No Symptoms Psychiatric: Reports: No Symptoms - General Info Date of Service: 06/19/20 - Patient Data Vital Signs - Most Recent: Last Vital Signs Temp 95.4 F L 06/19/20 07:16 Pulse 63 06/19/20 07:16 Resp 16 06/19/20 07:16 BP 111/65 06/19/20 07:16 Pulse Ox 99 06/19/20 07:16 Weight - Most Recent: 307 lb 0.005 oz I&O - Last 24 Hours: Intake & Output 06/18/20 06/19/20 06/19/20 22:59 06:59 14:59 Intake Total 480 Balance 480 Lab Results - Last 24 Hours: Laboratory Results - last 24 hr 06/19/20 Range/Units 04:53 WBC 15.5 H (4.5-11.0) K/uL RBC 4.12 (3.30-5.50) M/uL Hgb 11.3 L (12.0-15.0) g/dL Hct 34.6 L (36.0-48.0) % MCV 84 (80-98) fL MCH 27 (27-31) pg MCHC 33 (32-36) % Plt Count 238 (150-400) K/uL Med Orders - Current: Current Medications Acetaminophen (Tylenol Bulk Bottle) 0 mg PO Q4H PRN PRN Reason: Pain Last Admin: 06/18/20 23:36 Dose: 325 mg Documented by: Benzocaine (Drnc-S-Jqyjxlg 20% [place]) 0 gm TOP Q4H PRN PRN Reason: discomfort Last Admin: 06/19/20 00:43 Dose: 56 gm Documented by: Emollient Ointment (Lansinoh Hpa) 0 gm TOP ASDIRECTED PRN PRN Reason: sore nipples Last Admin: 06/19/20 00:42 Dose: 40 gm Documented by: Hydrocortisone (Proctozone-Hc 2.5% Crm) 1 gm TOP ASDIRECTED PRN PRN Reason: Itching Penicillin G Potassium 2.5 (millunits/ Sodium Chloride) 50 mls @ 100 mls/hr IV Q4H BREEZY Last Admin: 06/19/20 04:54 Dose: 100 mls/hr Documented by: Lactated Ringer's (Ringers, Lactated) 1,000 mls @ 75 mls/hr IV ASDIRECTED BREEZY Last Admin: 06/18/20 23:39 Dose: 75 mls/hr Documented by: Oxytocin/Sodium Chloride (Pitocin In Ns 20 Units/1,000 Ml) 20 unit in 1,000 mls @ 999 mls/hr IV ASDIRECTED BREEZY; Protocol Last Titration: 06/18/20 19:25 Dose: 999 mls/hr, 999 mls/hr Documented by: Ibuprofen (Motrin Bulk Bottle) 600 mg PO Q6H PRN PRN Reason: Pain Last Admin: 06/18/20 23:36 Dose: 600 mg Documented by: Sodium Chloride (Saline Flush) 10 ml FLUSH ASDIRECTED PRN PRN Reason: Keep Vein Open Witch Cat (Tucks) 1 pad TOP ASDIRECTED PRN PRN Reason: discomfort Discontinued Medications Emollient Ointment (Lansinoh Hpa) 0 gm TOP ASDIRECTED ONE Stop: 06/18/20 20:32 Last Admin: 06/18/20 23:53 Dose: Not Given Documented by: Ephedrine Sulfate (Ephedrine Sulfate) 10 mg IVPUSH ASDIRECTED PRN PRN Reason: epidural Fentanyl (Sublimaze) 100 mcg IVPUSH Q1H PRN PRN Reason: Pain (moderate 4-6) Last Admin: 06/18/20 15:27 Dose: 50 mcg Documented by: Penicillin G Potassium 5 (millunits/ Sodium Chloride) 100 mls @ 200 mls/hr IV ONETIME ONE Stop: 06/18/20 08:59 Last Admin: 06/18/20 08:36 Dose: 200 mls/hr Documented by: Lactated Ringer's (Ringers, Lactated) 1,000 mls @ 999 mls/hr IV BOLUS ONE Stop: 06/18/20 14:30 Last Admin: 06/18/20 13:36 Dose: 999 mls/hr Documented by: Lactated Ringer's (Ringers, Lactated) 1,000 mls @ 999 mls/hr IV .BOLUS ONE Stop: 06/18/20 17:43 Ropivacaine (Naropin 0.2%) Confirm Administered Dose 100 mls @ as directed .ROUTE .STK-MED ONE Stop: 06/18/20 17:24 Misoprostol (Cytotec) 50 mcg VAG ONETIME ONE Stop: 06/18/20 07:32 Last Admin: 06/18/20 07:59 Dose: 50 mcg Documented by: Misoprostol (Cytotec) 50 mcg VAG ONETIME ONE Stop: 06/18/20 12:01 Last Admin: 06/18/20 12:24 Dose: 50 mcg Documented by: Misoprostol (Cytotec) 25 mcg VAG ONETIME ONE Stop: 06/18/20 12:06 Last Admin: 06/18/20 12:41 Dose: Not Given Documented by: Vinnie Stewart) 1 pad TOP ASDIRECTED ONE Stop: 06/18/20 20:32 Last Admin: 06/18/20 23:54 Dose: Not Given Documented by: Vinnie Stewart) 1 pad TOP ASDIRECTED ONE Stop: 06/18/20 23:46 Last Admin: 06/19/20 00:42 Dose: 1 pad Documented by: - Interaction Infant Disposition, : in Room with Family Infant Interaction: Not Interacting Feeding: Attempted ; Nursed Fair/Poor, Encouraged to Breastfeed Support Person: Mother - Recovery Exam Fundal Tone: Firm Fundal Level: At Umbilicus Fundal Placement: Midline Lochia Amount: Moderate Lochia Color: Rubra/Red Perineum Description: Edematous, Hemorrhoids Other Perinuem Description: digital exam, repair intact and swelling improving Episiotomy/Laceration: Approximated Bladder Status: Voiding Urinary Elimination: Voided - Exam General: Alert, Oriented HEENT: Pupils Equal Neck: Supple Lungs: Clear to Auscultation, Normal Respiratory Effort Cardiovascular: Regular Rate GI/Abdominal Exam: Soft, Non-Tender Extremities: No Pedal Edema, Normal Capillary Refill Skin: Warm Wound/Incisions: Healing Well Neurological: No New Focal Deficit Psy/Mental Status: Alert, Normal Affect, Normal Mood - Problem List & Annotations (1) Elective induction of labor planned SNOMED Code(s): 133581140 Code(s): LNA6107 - Status: Acute Current Visit: Yes (2) SNOMED Code(s): 66741961 Code(s): Z34.90 - ENCNTR FOR SUPRVSN OF NORMAL , UNSP, UNSP TRIMESTER Status: Resolved Current Visit: No Qualifiers: Weeks of gestation: 40 weeks Qualified Code(s): Z3A.40 - 40 weeks gestation of (3) Third degree perineal laceration during delivery SNOMED Code(s): 34206033, 450693651 Code(s): O70.20 - THIRD DEGREE PERINEAL LACERATION DURING DELIVERY, UNSP Status: Acute Current Visit: Yes (4) Labor/delivery complication, delivered SNOMED Code(s): 801277516, 464661899 Code(s): O75.9 - COMPLICATION OF LABOR AND DELIVERY, UNSPECIFIED Status: Acute Current Visit: Yes (5) Active labor at term SNOMED Code(s): 60722172 Code(s): TTF0361 - Status: Acute Current Visit: Yes - Problem List Review Problem List Initiated/Reviewed/Updated: Yes - My Orders Last 24 Hours: My Active Orders 06/18/20 08:11 May Shower [RC] ASDIRECTED Notify Provider Vital Signs [RC] PRN Up ad My [RC] ASDIRECTED Vital Signs [RC] PER UNIT ROUTINE Sodium Chloride 0.9% [Saline Flush] 10 ml FLUSH ASDIRECTED PRN DVT/VTE Prophylaxis Reflex [OM.PC] Routine Saline Lock Insert [OM.PC] Routine Resuscitation Status Routine 06/18/20 08:13 Antiembolic Devices [RC] .Routine VTE/DVT Education [RC] Click to Edit 06/18/20 08:14 Dietary Supplements [RC] BIDMEALS 06/18/20 12:30 Penicillin G Potassium [Pfizerpen] 2.5 millunits Sodium Chloride 0.9% [Normal Saline] 50 ml IV Q4H 06/18/20 14:30 Lactated Ringers [Ringers, Lactated] 1,000 ml IV ASDIRECTED 06/18/20 15:30 Oxytocin/Normal Saline [Pitocin in NS 20 Units/1,000 ML] 20 unit in 1,000 ml IV ASDIRECTED 06/18/20 16:44 Communication Order [RC] ASDIRECTED Local Anesthetic Infusion Pump [RC] ASDIRECTED PCEA Epidural [RC] ASDIRECTED PCEA Epidural [RC] ASDIRECTED Epidural Catheter Management [OM.PC] Urgent 06/18/20 16:45 Insert Urinary Catheter [OM.PC] ASDIRECTED 06/18/20 20:31 Hydrocortisone [Proctozone-HC 2.5% Crm] 1 gm TOP ASDIRECTED PRN 06/18/20 20:32 Patient Status [ADT] Routine Vital Signs [RC] PFP Ice Therapy [OM.PC] Per Unit Routine Perineal Care [OM.PC] Per Unit Routine Sitz Bath [OM.PC] Per Unit Routine 06/18/20 20:33 Acetaminophen [Tylenol Bulk Bottle] See Dose Instructions PO Q4H PRN Ibuprofen [Motrin Bulk Bottle] 600 mg PO Q6H PRN 06/18/20 23:50 Benzocaine [Iahg-K-Prhbevi 20% [place]] 0 gm TOP Q4H PRN Lanolin [Lansinoh HPA] 0 gm TOP ASDIRECTED PRN 06/18/20 23:51 witch Cat [Tucks] 1 pad TOP ASDIRECTED PRN - Assessment Assessment:: 20 year G2 now P1 40 4/7 weeks vacuum assisted vaginal delivery with third degree tear with repair. female 06/19/20 PPD 1 mood happy not good, struggling with latch and baby cues voiding and flow is insole beveler repair intact and digital exam no hematomas hgb 11.3 - Plan Plan:: 20 year old 40 4/7 weeks coronel score 8, reactive nst mild contractions GBS positive, will treat planned induction 50 mcg placed at 0800 monitor for contractions and active labor will reassess at noon. pain management per patient request. 06/18/20 routine cares needs education and support of GBS positive, treated 48-72 hour stay CBC in am perineal care, ice times 24 hours 06/19/20 Continue routine cares sitz bath today ambulate education and help with needs to stay at least until tomorrow evening set up public health with [facility]
[2020-06-20] MEDS ORDERED: Docusate Sodium 100 MG Cap PO PRN (08:20)
[2020-06-20] MEDS ORDERED: Magnesium Hydroxide 400 MG/5 ML Susp 30 ML Cup PO ONE (08:20)
--- NOTE | 2020-06-20 08:20 | PCM.PNPP ---
- General Info Date of Service: 06/20/20 Functional Status: Reports: Pain Controlled - Review of Systems General: Reports: No Symptoms HEENT: Reports: No Symptoms Pulmonary: Reports: No Symptoms Cardiovascular: Reports: No Symptoms Gastrointestinal: Reports: No Symptoms Genitourinary: Reports: No Symptoms Musculoskeletal: Reports: No Symptoms Skin: Reports: No Symptoms Neurological: Reports: No Symptoms Psychiatric: Reports: No Symptoms - General Info Date of Service: 06/20/20 - Patient Data Vital Signs - Most Recent: Last Vital Signs Temp 36.1 C 06/20/20 00:10 Pulse 61 06/20/20 00:10 Resp 16 06/20/20 00:10 BP 110/60 06/20/20 00:10 Pulse Ox 98 06/20/20 00:10 Weight - Most Recent: 139.253 kg I&O - Last 24 Hours: Intake & Output 06/19/20 06/20/20 06/20/20 22:59 06:59 14:59 Intake Total 800 Balance 800 Med Orders - Current: Current Medications Acetaminophen (Tylenol Bulk Bottle) 0 mg PO Q4H PRN PRN Reason: Pain Last Admin: 06/18/20 23:36 Dose: 325 mg Documented by: Benzocaine (Huqn-L-Ouzspya 20% [place]) 0 gm TOP Q4H PRN PRN Reason: discomfort Last Admin: 06/19/20 00:43 Dose: 56 gm Documented by: Emollient Ointment (Lansinoh Hpa) 0 gm TOP ASDIRECTED PRN PRN Reason: sore nipples Last Admin: 06/19/20 00:42 Dose: 40 gm Documented by: Hydrocortisone (Proctozone-Hc 2.5% Crm) 1 gm TOP ASDIRECTED PRN PRN Reason: Itching Lactated Ringer's (Ringers, Lactated) 1,000 mls @ 75 mls/hr IV ASDIRECTED BREEZY Last Admin: 06/18/20 23:39 Dose: 75 mls/hr Documented by: Oxytocin/Sodium Chloride (Pitocin In Ns 20 Units/1,000 Ml) 20 unit in 1,000 mls @ 999 mls/hr IV ASDIRECTED BREEZY; Protocol Last Titration: 06/18/20 19:25 Dose: 999 mls/hr, 999 mls/hr Documented by: Ibuprofen (Motrin Bulk Bottle) 600 mg PO Q6H PRN PRN Reason: Pain Last Admin: 06/18/20 23:36 Dose: 600 mg Documented by: Sodium Chloride (Saline Flush) 10 ml FLUSH ASDIRECTED PRN PRN Reason: Keep Vein Open [place] (Tucks) 1 pad TOP ASDIRECTED PRN PRN Reason: discomfort Discontinued Medications Emollient Ointment (Lansinoh Hpa) 0 gm TOP ASDIRECTED ONE Stop: 06/18/20 20:32 Last Admin: 06/18/20 23:53 Dose: Not Given Documented by: Ephedrine Sulfate (Ephedrine Sulfate) 10 mg IVPUSH ASDIRECTED PRN PRN Reason: epidural Fentanyl (Sublimaze) 100 mcg IVPUSH Q1H PRN PRN Reason: Pain (moderate 4-6) Last Admin: 06/18/20 15:27 Dose: 50 mcg Documented by: Penicillin G Potassium 5 (millunits/ Sodium Chloride) 100 mls @ 200 mls/hr IV ONETIME ONE Stop: 06/18/20 08:59 Last Admin: 06/18/20 08:36 Dose: 200 mls/hr Documented by: Penicillin G Potassium 2.5 (millunits/ Sodium Chloride) 50 mls @ 100 mls/hr IV Q4H BREEZY Last Admin: 06/19/20 10:21 Dose: Not Given Documented by: Lactated Ringer's (Ringers, Lactated) 1,000 mls @ 999 mls/hr IV BOLUS ONE Stop: 06/18/20 14:30 Last Admin: 06/18/20 13:36 Dose: 999 mls/hr Documented by: Lactated Ringer's (Ringers, Lactated) 1,000 mls @ 999 mls/hr IV .BOLUS ONE Stop: 06/18/20 17:43 Last Admin: 06/19/20 10:20 Dose: Not Given Documented by: Ropivacaine (Naropin 0.2%) Confirm Administered Dose 100 mls @ as directed .ROUTE .STK-MED ONE Stop: 06/18/20 17:24 Misoprostol (Cytotec) 50 mcg VAG ONETIME ONE Stop: 06/18/20 07:32 Last Admin: 06/18/20 07:59 Dose: 50 mcg Documented by: Misoprostol (Cytotec) 50 mcg VAG ONETIME ONE Stop: 06/18/20 12:01 Last Admin: 06/18/20 12:24 Dose: 50 mcg Documented by: Misoprostol (Cytotec) 25 mcg VAG ONETIME ONE Stop: 06/18/20 12:06 Last Admin: 06/18/20 12:41 Dose: Not Given Documented by: Vinnie Shelton ([place]) 1 pad TOP ASDIRECTED ONE Stop: 06/18/20 20:32 Last Admin: 06/18/20 23:54 Dose: Not Given Documented by: Vinnie Stewart) 1 pad TOP ASDIRECTED ONE Stop: 06/18/20 23:46 Last Admin: 06/19/20 00:42 Dose: 1 pad Documented by: - Interaction Infant Disposition, : [place] in Room with Family Interaction: Not Interacting Feeding: Attempted ; Nursed Fair/Poor, Encouraged to Breastfeed Support Person: Mother - Recovery Exam Fundal Tone: Firm Fundal Level: At Umbilicus Fundal Placement: Midline Lochia Amount: Small Lochia Color: Rubra/Red Perineum Description: Edematous, Hemorrhoids Other Perinuem Description: digital exam, repair intact and swelling improving Episiotomy/Laceration: Approximated Bladder Status: Voiding Urinary Elimination: Voided - Exam General: Alert, Oriented, Cooperative HEENT: Pupils Equal, Pupils Reactive, EOMI, Mucous Membr. Moist/[place] Neck: Supple Lungs: Clear to Auscultation, Normal Respiratory Effort Cardiovascular: Regular Rate, Regular Rhythm GI/Abdominal Exam: Normal Bowel Sounds, Soft, Non-Tender, No Organomegaly, No Distention, No Abnormal Bruit, No Mass, Pelvis Stable Extremities: Normal Inspection, Normal Range of Motion, Non-Tender, No Pedal Edema, Normal Capillary Refill Skin: Warm, Dry, Intact Wound/Incisions: Healing Well Neurological: No New Focal Deficit Psy/Mental Status: Alert, Normal Affect, Normal Mood - Problem List & Annotations (1) Vaginal delivery SNOMED Code(s): 979638195 Code(s): O80 - ENCOUNTER FOR FULL-TERM UNCOMPLICATED DELIVERY Status: Acute Current Visit: Yes (2) () SNOMED Code(s): 787522882 Code(s): Z78.9 - OTHER SPECIFIED HEALTH STATUS Status: Acute Current Visit: Yes (3) Labor/delivery complication, delivered SNOMED Code(s): 163145379, 671209736 Code(s): O75.9 - COMPLICATION OF LABOR AND DELIVERY, UNSPECIFIED Status: Acute Current Visit: Yes (4) Third degree perineal laceration during delivery SNOMED Code(s): 97706822, 050675489 Code(s): O70.20 - THIRD DEGREE PERINEAL LACERATION DURING DELIVERY, UNSP Status: Acute Current Visit: Yes - Problem List Review Problem List Initiated/Reviewed/Updated: Yes - Assessment Assessment:: 20 year G2 now P1 40 4/7 weeks vacuum assisted vaginal delivery with third degree tear with repair. female infant 06/19/20 PPD 1 mood happy not good, struggling with latch and baby cues voiding and flow is dog trainer repair intact and digital exam no hematomas hgb 11.3 06/20/20 Day Two fair, struggling with latch is pumping and syringe feeding also Fundus firm and bleeding decreasing Voiding and passing gas repair intact and digital exam no hematomas Desires discharge home - Plan Plan:: 20 year old 40 4/7 weeks coronel score 8, reactive nst mild contractions GBS positive, will treat planned induction 50 mcg placed at 0800 monitor for contractions and active labor will reassess at noon. pain management per patient request. 06/18/20 routine cares needs education and support of GBS positive, treated 48-72 hour stay CBC in am perineal care, ice times 24 hours 06/19/20 Continue routine cares sitz bath today ambulate education and help with needs to stay at least until tomorrow evening set up public health with [facility] 06/20/20 Continue routine cares Verito dodd today Continue to support and encourage to see Discharge home today To see me in six weeks for visit set up public health with [facility]
[2020-06-20] MEDS ORDERED: Sertraline 25 MG Tab PO SCH (09:00)
[2020-06-20 09:27] VITALS: BP 117/51; PULSE 70
== END 2020-06-20 15:15 | disposition home or self-care (01) | DRG 768 ==
LOC: JP.OB 06:51 → OBSVTOIN 19:23 → JP.OB 19:23 → JP.MS 20:53
PROVIDERS: ADMIT Nurse Practitioner Family; ATTEND Nurse Practitioner Family
PROC: 10D07Z6 Extraction of Products of Conception, Vacuum, Via Natural or Artificial Opening (ICD-10-PCS; principal; 2020-06-18)
PROC: 0DQR0ZZ Repair Anal Sphincter, Open Approach (ICD-10-PCS; 2020-06-18)
PROC: 3E0P7VZ Introduction of Hormone into Female Reproductive, Via Natural or Artificial Opening (ICD-10-PCS; 2020-06-18)
PROC: 3E0R3BZ Introduction of Anesthetic Agent into Spinal Canal, Percutaneous Approach (ICD-10-PCS; 2020-06-18)
PROC: 00HU33Z Insertion of Infusion Device into Spinal Canal, Percutaneous Approach (ICD-10-PCS; 2020-06-18)
DX: O99.62 Diseases of the digestive system complicating childbirth (principal); Z37.0 Single live birth; K21.9 Gastro-esophageal reflux disease without esophagitis; O99.214 Obesity complicating childbirth; E66.9 Obesity, unspecified; O69.1XX0 Labor and delivery complicated by cord around neck, with compression, not applicable or unspecified; O70.20 Third degree perineal laceration during delivery, unspecified; O99.824 Streptococcus B carrier state complicating childbirth; Z3A.40 40 weeks gestation of pregnancy; Z90.49 Acquired absence of other specified parts of digestive tract
CPT/HCPCS: 36415; 51701; 59409; 80305-QW; 81001; 85025; 85027; A9270-GY; J2540; J2590; J2795; J3010; J7050; J7120

== ENCOUNTER 2020-06-21 11:17 | Emergency (ER) | payer MEDICAID ==
[2020-06-21 11:59] VITALS: BP 116/63; PULSE 64
--- NOTE | 2020-06-21 12:44 | EDM.PDOCBH ---
ED HPI GENERAL MEDICAL PROBLEM - General Chief Complaint: Behavioral/Psych Time Seen by Provider: 06/21/20 12:42 Source of Information: Reports: Provider - History of Present Illness INITIAL COMMENTS - FREE TEXT/NARRATIVE: 20-year-old female discharge from the hospital yesterday after delivering a term female baby. She was supposed to go to the clinic to discuss depression and anxiety, along with mixed feelings about whether she wanted to keep the baby. She came to the emergency room instead. When her primary provider Ana Salazar realize she came to the emergency room, she kindly came over and saw the patient. She did discuss her current situation with me as well as the treatment plan plan but I did not see the patient. She was evaluated and cared for by Ana Salazar. Back Pain Score (Numeric/FACES): 5 - Related Data Allergies Allergy/AdvReac Type Severity Reaction Status Date / Time No Known Allergies Allergy Verified 11/12/19 12:08 Home Meds: Home Meds #103/Iron Fumarate/Fa [ ] 1 tab PO DAILY 11/12/19 [History] Sertraline [Zoloft] 25 mg PO DAILY 06/21/20 [History] Past Medical History HEENT History: Reports: Impaired Vision Respiratory History: Reports: Bronchitis, Recurrent Gastrointestinal History: Reports: Chronic Constipation, GERD Genitourinary History: Reports: Other (See Below) Other Genitourinary History: BV ORTHO ASSISTANT History: Reports: , Spontaneous Neurological History: Reports: Migraines Psychiatric History: Reports: Anxiety, Depression, Other (See Below), Panic Attack, Suicide Attempt Other Psychiatric History: cutting Endocrine/Metabolic History: Reports: Obesity/BMI 30+, Vitamin D Deficiency Hematologic History: Reports: None Dermatologic History: Reports: Other (See Below) Other Dermatologic History: cutting - Infectious Disease History Infectious Disease History: Reports: Chicken Pox - Past Surgical History HEENT Surgical History: Reports: Adenoidectomy, Other (See Below), Oral Surgery, Tonsillectomy GI Surgical History: Reports: Cholecystectomy Social & Family History - Family History Family Medical History: Noncontributory - Tobacco Use Smoking Status *Q: Never Smoker Second Hand Smoke Exposure: No - Caffeine Use Caffeine Use: Reports: None Caffeine Use Comment: 4 per day - Recreational Drug Use Recreational Drug Use: No ED ROS GENERAL - Review of Systems Review Of Systems: See Below Reason Not Obtained: Not done by myself ED EXAM, BEHAVIORAL HEALTH - Physical Exam Exam: See Below Text/Narrative:: Patient not seen by emergency physician, her evaluation and care was handled by her primary caregiver. COURSE, BEHAVIORAL HEALTH COMP - Course Vital Signs: Last Vital Signs Temp 96.6 F L 06/21/20 11:49 Pulse 64 06/21/20 11:49 Resp 20 06/21/20 11:49 BP 116/63 06/21/20 11:49 Pulse Ox 97 06/21/20 11:49 Re-Assessment/Re-Exam: Initial plan was to have social scientist consulted, admit the baby for safety and have the mother follow-up with counseling however her story was changing depend on who was present, so her primary provider decided to have an in-house crisis intervention consultation which was arranged. This is pending. human services assistant was not able to offer an inpatient evaluation or intervention until there is "harm to the baby". The family was willing to take the patient and baby home with close monitoring and will follow-up next week. It was strongly encouraged to the patient and her family to maintain her daily dose of Zoloft which she is prescribed but has not taken today. Departure - Departure Time of Disposition: 14:49 Disposition: Home, Self-Care 01 Clinical Impression: depression - Discharge Information Instructions: Baby Blues Referrals: Ana Cohen CNM [Primary Care Provider] - Forms: ED Department Discharge Care Plan Goals: Recheck with Ana Salazar at 4 PM Wednesday next week, or return sooner if you feel you need urgent evaluation or care before that time. Sepsis Event Note (ED) - Evaluation Sepsis Screening Result: No Definite Risk - Focused Exam Vital Signs: Vital Signs Temp Pulse Pulse Resp BP BP Pulse Ox 06/21/20 11:49 96.6 F L 64 20 116/63 97 06/21/20 11:35 96.6 F L 71 15 116/72 98
--- NOTE | 2020-06-21 18:59 | PCM.PN ---
- General Info Date of Service: 06/21/20 Functional Status: Reports: Pain Controlled - Review of Systems General: Reports: No Symptoms HEENT: Reports: No Symptoms Pulmonary: Reports: No Symptoms Cardiovascular: Reports: No Symptoms Gastrointestinal: Reports: No Symptoms Genitourinary: Reports: No Symptoms Musculoskeletal: Reports: No Symptoms Skin: Reports: No Symptoms Neurological: Reports: No Symptoms Psychiatric: Reports: Depression, Mood Lability, Anxiety - Patient Data Vitals - Most Recent: Last Vital Signs Temp 35.9 C L 06/21/20 11:49 Pulse 64 06/21/20 11:49 Resp 20 06/21/20 11:49 BP 116/63 06/21/20 11:49 Pulse Ox 97 06/21/20 11:49 Weight - Most Recent: 133.81 kg - Exam General: Alert, Oriented, Mild Distress HEENT: Pupils Equal, Pupils Reactive, EOMI, Mucous Membr. Moist/[place] Neck: Supple Lungs: Clear to Auscultation, Normal Respiratory Effort Cardiovascular: Regular Rate, Regular Rhythm GI/Abdominal Exam: Normal Bowel Sounds, Soft, Non-Tender, No Organomegaly, No Distention, No Abnormal Bruit, No Mass, Pelvis Stable (Female) Exam: Normal External Exam, Normal Speculum Exam, Normal Bimanual Exam Back Exam: Normal Inspection, Full Range of Motion Extremities: Normal Inspection, Normal Range of Motion, Non-Tender, No Pedal Edema, Normal Capillary Refill Skin: Warm, Dry, Intact Neurological: No New Focal Deficit Psy/Mental Status: Alert, Labile Mood, Anxious, Depressed Sepsis Event Note - Evaluation Sepsis Screening Result: No Definite Risk - Focused Exam Vital Signs: Vital Signs Temp Pulse Pulse Resp BP BP Pulse Ox 06/21/20 11:49 35.9 C L 64 20 116/63 97 06/21/20 11:35 35.9 C L 71 15 116/72 98 - Problem List & Annotations (1) depression SNOMED Code(s): 65287515 Code(s): O99.345 - OTHER MENTAL DISORDERS COMPLICATING THE PUERPERIUM; F53.0 - DEPRESSION Status: Acute - Problem List Review Problem List Initiated/Reviewed/Updated: Yes - Assessment Assessment:: 06/21/2020 Patient was here in emergency department after calling the nurses on the floor with severe depression and stating she did not want to keep her baby. She was supposed to come see provider at the clinic but got confused and showed up to the emergency department instead. On initial exam patient is very tearful, having racing thoughts, states she is depressed and does not think she can do this any more. She delivered a viable female infant approximately three days ago and was discharged yesterday. She states since going home she has struggled to care for her self and the infant. She finds herself even unable to do simple things like come her hair. She states that she is now realizing she did not every want to have this baby. She admits to in beginning was going to have an but could not do that, then she wanted to do adoption but was worried her family would never forgive her. She states even when her baby was born she felt no connection and no want to have her. She states her divorce just became about today, her brother is currently dying in the ICU here at the hospital and she has no support. She states she would like to give the baby up but does not want anyone mad at her. She states she needs to get herself better and can't do that while caring for an infant and states she doesn't know if she every will be able to care for her. Education was done with patient on different options, such as placing with a family member, placing with manager social work and our safe haven law she could use. Patient was leaning towards safe haven but wanted her mother to be educated. Mother of patient was in ICU with her brother, so a nurse went to get her. After her mother entered the room, Gillian changed and states that she never wanted to give her baby up that she just wants to live with her mother and have her care for baby and her. Gillian's mother states she has a lot on her plate and really can't raise the but did agree to have them both come home with her. Did contact manager social work but they stated there was no grounds to do anything with child until there is harm done to the child. Patient in the end discharged home with her mother and baby. She is to follow up with provider at next scheduled appointment. She is also to get set up with medication management and behavioral health.
== END 2020-06-21 15:00 | disposition home or self-care (01) ==
LOC: JP.ED 11:17
DX: O99.345 Other mental disorders complicating the puerperium (principal); F53.0 Postpartum depression; Z79.899 Other long term (current) drug therapy
CPT/HCPCS: 99283

== ENCOUNTER 2022-01-30 19:23 | Emergency (ER) | payer MEDICAID ==
[2022-01-30] MEDS ORDERED: Sodium Chloride 0.9% 10 ML Syringe FLUSH PRN (19:32)
[2022-01-30] MEDS ORDERED: Ondansetron 4 MG/2 ML SDV IVPUSH ONE (19:32)
[2022-01-30 19:43] VITALS: BP 107/67
[2022-01-30] MEDS ORDERED: Lactated Ringers 1,000 ML IV ONE (20:21)
[2022-01-30 21:21] LABS: CORONAVIRUS COVID-19 NAA NEGATIVE (NEGATIVE)
[2022-01-30 22:05] VITALS: PULSE 75
== END 2022-01-30 22:05 | disposition home or self-care (01) ==
LOC: JP.ED 19:23
DX: A09 Infectious gastroenteritis and colitis, unspecified (principal); R79.89 Other specified abnormal findings of blood chemistry; E66.9 Obesity, unspecified; Z72.0 Tobacco use; Z20.822 Contact with and (suspected) exposure to COVID-19; Z68.38 Body mass index [BMI] 38.0-38.9, adult
CPT/HCPCS: 0241U; 36415; 80053; 81003; 81025; 85025; 96374; 99284; J2405; J3490; J7120; 99283

== ENCOUNTER 2022-05-17 09:43 | Emergency (ER) | payer MEDICAID ==
[2022-05-17 10:04] VITALS: BP 128/74; PULSE 87
[2022-05-17] MEDS ORDERED: Ondansetron 4 MG Tab.DIS PO ONE (10:14)
== END 2022-05-17 11:51 | disposition home or self-care (01) ==
LOC: JP.ED 09:43
DX: O21.9 Vomiting of pregnancy, unspecified (principal); O99.331 Smoking (tobacco) complicating pregnancy, first trimester; F17.210 Nicotine dependence, cigarettes, uncomplicated; Z86.16 Personal history of COVID-19; Z20.822 Contact with and (suspected) exposure to COVID-19; Z3A.00 Weeks of gestation of pregnancy not specified
CPT/HCPCS: 81025; 87635; 99284; Q0162; 99281; U0002

== ENCOUNTER 2022-05-19 18:40 | Emergency (ER) | payer MEDICAID ==
[2022-05-19 18:53] VITALS: BP 133/56; PULSE 68
== END 2022-05-19 19:33 | disposition home or self-care (01) ==
LOC: JP.ED 18:40
DX: O30.041 Twin pregnancy, dichorionic/diamniotic, first trimester (principal); O98.911 Unspecified maternal infectious and parasitic disease complicating pregnancy, first trimester; A59.9 Trichomoniasis, unspecified; O20.9 Hemorrhage in early pregnancy, unspecified; Z3A.01 Less than 8 weeks gestation of pregnancy; Z86.16 Personal history of COVID-19
CPT/HCPCS: 99283

== ENCOUNTER 2022-06-06 15:15 | Emergency (ER) | payer MEDICAID ==
[2022-06-06 18:17] VITALS: BP 125/71; PULSE 64
[2022-06-06 19:25] LABS: ESTIMATED GFR 129 mL/min (>60)
[2022-06-06] MEDS ORDERED: Ondansetron 4 MG Tab.DIS PO ONE (22:57)
[2022-06-07] MEDS ORDERED: Ondansetron 4 MG Tab.DIS PO ONE ×2 (11:12→16:59)
[2022-06-07] MEDS ORDERED: Prenatal Multivitamin with Calcium/Folic Acid/Iron Tab PO SCH (13:00)
== END 2022-06-07 17:20 ==
LOC: JP.ED 15:15
DX: R45.851 Suicidal ideations (principal); E05.90 Thyrotoxicosis, unspecified without thyrotoxic crisis or storm; R82.71 Bacteriuria; F12.10 Cannabis abuse, uncomplicated; E66.9 Obesity, unspecified; Z68.37 Body mass index [BMI] 37.0-37.9, adult; Z79.899 Other long term (current) drug therapy; Z86.16 Personal history of COVID-19; Z20.822 Contact with and (suspected) exposure to COVID-19
CPT/HCPCS: 36415; 80053; 80305; 80307; 81001; 81025; 84439; 84443; 84481; 84702; 85025; 87086; 87635; 99284; Q0162; U0002

== ENCOUNTER 2022-06-23 19:03 | Emergency (ER) | payer MEDICAID ==
[2022-06-23 19:33] VITALS: BP 131/79; PULSE 76
[2022-06-23] MEDS ORDERED: Sodium Chloride 0.9% 10 ML Syringe FLUSH PRN (19:47)
[2022-06-23] MEDS ORDERED: Sodium Chloride 0.9% 1,000 ML IV SCH (20:00)
== END 2022-06-23 21:43 | disposition home or self-care (01) ==
LOC: JP.ED 19:03
DX: O21.1 Hyperemesis gravidarum with metabolic disturbance (principal); O30.012 Twin pregnancy, monochorionic/monoamniotic, second trimester; Z3A.11 11 weeks gestation of pregnancy; E66.9 Obesity, unspecified; Z68.36 Body mass index [BMI] 36.0-36.9, adult; Z79.899 Other long term (current) drug therapy; Z86.16 Personal history of COVID-19; Z90.49 Acquired absence of other specified parts of digestive tract
CPT/HCPCS: 96360; 99283; J3490; J7030

== ENCOUNTER 2023-05-10 08:57 | Emergency (ER) | payer MEDICAID ==
[2023-05-10 09:25] VITALS: BP 151/76; PULSE 69
== END 2023-05-10 11:56 | disposition home or self-care (01) ==
LOC: JP.ED 08:57
DX: N92.6 Irregular menstruation, unspecified (principal); F17.210 Nicotine dependence, cigarettes, uncomplicated; E66.01 Morbid (severe) obesity due to excess calories; Z68.41 Body mass index [BMI] 40.0-44.9, adult; Z86.16 Personal history of COVID-19
CPT/HCPCS: 81025; 99283